=== PATIENT | female | born 1975 | race Caucasian/White ===

== ENCOUNTER 2017-05-12 08:04 | Observation (INO) | payer OTHER ==
[2017-05-12] MEDS ORDERED: ASPIRIN 81 MG TABLET, CHEWABLE PO ONE (08:18)
--- NOTE | 2017-05-12 08:36 | ER Document Report ---
ED General - General Chief Complaint: Chest Pain Stated Complaint: CHEST PAIN Time Seen by Provider: 05/12/17 08:18 Mode of Arrival: Ambulatory Information source: Patient Notes: 41-year-old female no previous cardiac history history of hypertension hyperlipidemia presents with complaints of chest pressure sensation being her right arm as of 7:00 this morning. Patient denies any fevers or chills admits to chronic shortness of breath secondary to smoking. Patient admits to history of CVA. Patient currently smokes. Patient notes she had a chemical stress test performed 3 years ago which was normal has never had a cardiac catheterization TRAVEL OUTSIDE OF THE [place] IN LAST 30 DAYS: No - HPI Onset: Just prior to arrival Onset/Duration: Sudden Quality of pain: Pressure Severity: Mild Pain Level: 1 Associated symptoms: Chest pain Exacerbated by: Denies Relieved by: Denies Similar symptoms previously: Yes Recently seen / treated by doctor: No - Related Data Allergies/Adverse Reactions: latex [Latex] Allergy (Verified 04/29/15 11:36) Sea Food Allergy (Uncoded 04/29/15 11:36) Home Medications: Current Home Medications Lisinopril/Hydrochlorothiazide [Lisinopril-Hctz 20-25 mg Tab] 1 each PO DAILY [History] Pantoprazole Sodium [Protonix] 40 mg PO DAILY 05/12/17 [History] Pravastatin Sodium 80 mg PO DAILY 05/12/17 [History] Sertraline HCl [Zoloft] 100 mg PO DAILY 05/12/17 [History] Past Medical History - Social History Smoking Status: Current Every Day Smoker Cigarette use (# per day): Yes Chew tobacco use (# tins/day): No Smoking Education Provided: Yes - Patient counselled regarding cessation for 4 minutes Family History: CAD - mother with [place] at 52, from it - Past Medical History Cardiac Medical History: Reports: Hx Hypercholesterolemia, Hx Hypertension Denies: Hx Congestive Heart Failure, Hx Heart Attack Pulmonary Medical History: Reports: Hx Bronchitis Denies: Hx Asthma, Hx COPD, Hx Pneumonia, Hx Tuberculosis Neurological Medical History: Reports: Hx Cerebrovascular Accident - 1 YEAR AGO , COMPLETE RECOVERY. Denies: Hx Seizures Endocrine Medical History: Reports: Hx Diabetes Mellitus Type 2 Renal/ Medical History: Denies: Hx End Stage Renal Disease, Hx Kidney Stones, Hx Peritoneal Dialysis GI Medical History: Denies: Hx Cirrhosis, Hx Gastroesophageal Reflux Disease, Hx Ulcer Musculoskeltal Medical History: Denies Hx Arthritis, Denies Hx Multiple Sclerosis Psychiatric Medical History: Reports: Hx Depression Denies: Hx Bipolar Disorder, Hx Schizophrenia Past Surgical History: Reports: Hx Abdominal Surgery - liver biopsy, Hx Dilation and Curettage, Hx Gynecologic Surgery - ECTOPIC PREG., D&C - Immunizations Hx Diphtheria, Pertussis, Tetanus Vaccination: Yes Review of Systems - Review of Systems Notes: REVIEW OF SYSTEMS: CONSTITUTIONAL : Denies fever, chills, or sweats. Denies recent illness. EENT: Denies eye, ear, throat, or mouth pain or symptoms. Denies nasal or sinus congestion or discharge. Denies throat, tongue, or mouth swelling or difficulty swallowing. CARDIOVASCULAR: Admits to chest pain RESPIRATORY: Denies cough, cold, or chest congestion. Denies shortness of breath, difficulty breathing, or wheezing. GASTROINTESTINAL: Denies abdominal pain or distention. Denies nausea, vomiting , or diarrhea. Denies blood in vomitus, stools, or per rectum. Denies black, tarry stools. Denies constipation. GENITOURINARY: Denies difficulty urinating, painful urination, burning, frequency, blood in urine, or discharge. FEMALE GENITOURINARY: Denies vaginal bleeding, heavy or abnormal periods, irregular periods. Denies vaginal discharge or odor. MUSCULOSKELETAL: Denies back or neck pain or stiffness. Denies joint pain or swelling. SKIN: Denies rash, lesions or sores. HEMATOLOGIC : Denies easy bruising or bleeding. LYMPHATIC: Denies swollen, enlarged glands. NEUROLOGICAL: Denies confusion or altered mental status. Denies passing out or loss of consciousness. Denies dizziness or lightheadedness. Denies headache. Denies weakness or paralysis or loss of use of either side. Denies problems with gait or speech. Denies sensory loss, numbness, or tingling. Denies seizures. PSYCHIATRIC: Denies anxiety or stress. Denies depression, suicidal ideation, or homicidal ideation. ALL OTHER SYSTEMS REVIEWED AND NEGATIVE. PHYSICAL EXAMINATION: GENERAL: Well-appearing, well-nourished and in no acute distress. HEAD: Atraumatic, normocephalic. EYES: Pupils equal round and reactive to light, extraocular movements intact, conjunctiva are normal. ENT: Nares patent, oropharynx clear without exudates. Moist mucous membranes. NECK: Normal range of motion, supple without lymphadenopathy LUNGS: Faint wheezing left upper lobe HEART: Regular rate and rhythm without murmurs ABDOMEN: Soft, nontender, nondistended abdomen. No guarding, no rebound. No masses appreciated. Female : deferred Musculoskeletal: Normal range of motion, no pitting or edema. No cyanosis. NEUROLOGICAL: Cranial nerves grossly intact. Normal speech, normal gait. Normal sensory, motor exams PSYCH: Normal mood, normal affect. SKIN: Warm, Dry, normal turgor, no rashes or lesions noted. Dictation was performed using [employer] ([email or web address] voice recognition software Physical Exam - Vital signs Vitals: Temp Pulse Resp BP Pulse Ox 97.8 F 94 18 181/101 H 95 05/12/17 08:10 05/12/17 08:10 05/12/17 08:10 05/12/17 08:10 05/12/17 08:10 Course - Re-evaluation Re-evalutation: 05/12/17 08:36 Cardiac workup pending at this time patient is not reproducible chest pain - Vital Signs Vital signs: Temp Pulse Resp BP Pulse Ox 97.8 F 94 21 H 147/95 H 96 05/12/17 08:10 05/12/17 08:10 05/12/17 09:46 05/12/17 09:46 05/12/17 09:46 - Laboratory Result Diagrams: 05/12/17 08:42 05/12/17 08:42 Laboratory results interpreted by me: 05/12/17 08:42 Glucose 132 H Discharge - Discharge Clinical Impression: Chest pain Qualifiers: Chest pain type: unspecified Qualified Code(s): R07.9 - Chest pain, unspecified HTN (hypertension) Qualifiers: Hypertension type: essential hypertension Qualified Code(s): I10 - Essential ( primary) hypertension Condition: Stable Disposition: ADMITTED OBSERVATION Admitting Provider: Hospitalist Unit Admitted: Telemetry
[2017-05-12 08:54] LABS: ABSOLUTE BASOPHILS # (AUTO) 0.1 10^3/uL (0.0-0.2); ABSOLUTE EOSINOPHILS # (AUTO) 0.1 10^3/uL (0.0-0.6); ABSOLUTE LYMPHOCYTES (AUTO) 1.4 10^3/uL (0.5-4.7); ABSOLUTE MONOCYTES (AUTO) 0.4 10^3/uL (0.1-1.4); ABSOLUTE NEUT (AUTO) 5.6 10^3/uL (1.7-8.2); BASOPHILS % (AUTO) 0.8 % (0-2); EOSINOPHILS % (AUTO) 0.9 % (0-6); HEMATOCRIT 43.3 % (36.0-47.0); HEMOGLOBIN 14.6 g/dL (12.0-15.5); HGB HCT DIFFERENCE 0.5; LYMPHOCYTES % (AUTO) 18.5 % (13-45); MEAN CORPUSCULAR HEMOGLOBIN 32.5 pg (27.0-33.4); MEAN CORPUSCULAR HGB CONC 33.6 g/dL (32.0-36.0); MEAN CORPUSCULAR VOLUME 97 fl (80-97); MONOCYTES % (AUTO) 5.3 % (3-13); RED BLOOD COUNT 4.48 10^6/uL (3.72-5.28); RED CELL DISTRIBUTION WIDTH 13.4 % (11.5-14.0); SEGMENTED NEUTROPHILS % (AUTO) 74.5 % (42-78); WHITE BLOOD COUNT 7.6 10^3/uL (4.0-10.5)
[2017-05-12 09:05] LABS: ALANINE AMINOTRANSFERASE 35 U/L (9-52); ALKALINE PHOSPHATASE 75 U/L (38-126); ANION GAP 9 (5-19); ASPARTATE AMINO TRANSFERASE 19 U/L (14-36); BILIRUBIN,DIRECT 0.3 mg/dL (0.0-0.4); BILIRUBIN,TOTAL 0.4 mg/dL (0.2-1.3); BLOOD UREA NITROGEN 14 mg/dL (7-20); CALCIUM 9.6 mg/dL (8.4-10.2); CARBON DIOXIDE 24 mmol/L (22-30); CHLORIDE 105 mmol/L (98-107); CREATINE KINASE 76 U/L (30-135); CREATININE RESULT 0.73 mg/dL (0.52-1.25); GLUCOSE 132 mg/dL (75-110); POTASSIUM 4.7 mmol/L (3.6-5.0); SODIUM 137.9 mmol/L (137-145); TOTAL PROTEIN 7.1 g/dL (6.3-8.2)
--- NOTE | 2017-05-12 09:12 | RADIOLOGY REPORT (SQ) ---
EXAM DESCRIPTION: CHEST SINGLE VIEW COMPLETED DATE/TIME: 05/12/2017 9:00 am REASON FOR STUDY: chest pain COMPARISON: 06/07/2016 EXAM PARAMETERS: NUMBER OF VIEWS: One view. TECHNIQUE: Single frontal radiographic view of the chest acquired. RADIATION DOSE: NA LIMITATIONS: None. FINDINGS: LUNGS AND PLEURA: No opacities, masses or pneumothorax. No pleural effusion. MEDIASTINUM AND HILAR STRUCTURES: No masses. Contour normal. HEART AND VASCULAR STRUCTURES: Heart normal in size. Normal vasculature. BONES: No acute findings. HARDWARE: None in the chest. OTHER: No other significant finding. IMPRESSION: NO ACUTE RADIOGRAPHIC FINDING IN THE CHEST. TECHNICAL DOCUMENTATION: JOB ID: [id number]
[2017-05-12 09:16] LABS: CREATINE KINASE MB 0.52 ng/mL (<4.55); TROPONIN I 0.017 ng/mL
[2017-05-12] MEDS: NITROGLYCERIN 0.4 MG/TAB 25 TAB/BOTTLE SL PRN ×2 (09:24→09:51)
[2017-05-12] MEDS ORDERED: NITROGLYCERIN 0.4 MG/TAB 25 TAB/BOTTLE SL PRN (10:51)
[2017-05-12] MEDS ORDERED: ONDANSETRON HCL INJ/PF 4 MG/2 ML SDV IV PRN (10:51)
--- NOTE | 2017-05-12 12:42 | PDOC H&P ---
History of Present Illness Admission Date/PCP: 05/12/17 10:51 PAUL COLLINS NP Patient complains of: Midsternal chest pain radiating to right shoulder History of Present Illness: MABEL VILLASENOR is a 41 year old female with no previous cardiac history history of hypertension, tobacco abuse, hyperlipidemia; who presents with complaints of chest pressure sensation that radiated to her right arm as of 7: 00 this morning, when she was getting out of bed. Patient denies any fevers or chills admits to chronic shortness of breath secondary to smoking. Patient admits to history of CVA with no residual or weakness. Patient currently smokes. Patient notes she had a chemical stress test performed 3 years ago which was normal has never had a cardiac catheterization Past Medical History Cardiac Medical History: Reports: Hyperlipidema, Hypertension Denies: Congestive Heart Failure, Myocardial Infarction Pulmonary Medical History: Reports: Bronchitis Denies: Asthma, Chronic Obstructive Pulmonary Disease (COPD), Pneumonia, Tuberculosis Neurological Medical History: Denies: Seizures Endocrine Medical History: Reports: Diabetes Mellitus Type 2 Renal/ Medical History: Denies: End Stage Renal Disease Malignancy Medical History: Reports: None GI Medical History: Denies: Cirrhosis, Gastroesophageal Reflux Disease Musculoskeltal Medical History: Denies: Arthritis Psychiatric Medical History: Reports: Depression, Tobacco Dependency Denies: Bipolar Disorder Traumatic Medical History: Reports: None Hematology: Denies: Anemia, Bleeding Tendencies Infectious Medical History: Reports: None Past Surgical History Past Surgical History: Reports: None Social History Information Source: Patient Lives with: Spouse/Significant other Smoking Status: Current Every Day Smoker Cigarettes Packs Per Day: 1 Number of Years Smokin Last Time Smoked: today Frequency of Alcohol Use: Occasional Drugs: None Hx Prescription Drug Abuse: No - Advance Directive Resuscitation Status: Full Code Family History Family History: CAD - mother with [place] at 52, from it, Hyperlipidemia, Hypertension Parental Family History Reviewed: Yes Children Family History Reviewed: Yes Sibling(s) Family History Reviewed.: Yes Medication/Allergy Home Medications: Lisinopril/Hydrochlorothiazide [Lisinopril-Hctz 20-25 mg Tab] 1 each PO DAILY Pantoprazole Sodium [Protonix] 40 mg PO DAILY 05/12/17 Pravastatin Sodium 80 mg PO DAILY 05/12/17 Sertraline HCl [Zoloft] 100 mg PO DAILY 05/12/17 Allergies/Adverse Reactions: latex [Latex] Allergy (Verified 04/29/15 11:36) Sea Food Allergy (Uncoded 04/29/15 11:36) Review of Systems Constitutional: ABSENT: chills, fever(s), headache(s), weight gain, weight loss Eyes: ABSENT: visual disturbances Ears: ABSENT: hearing changes Cardiovascular: PRESENT: chest pain, dyspnea on exertion, other Respiratory: ABSENT: cough, hemoptysis Gastrointestinal: PRESENT: dysphagia, heartburn. ABSENT: abdominal pain, constipation, diarrhea, hematemesis, hematochezia, nausea, vomiting Genitourinary: ABSENT: dysuria, hematuria Musculoskeletal: ABSENT: joint swelling Integumentary: ABSENT: rash, wounds Neurological: ABSENT: abnormal gait, abnormal speech, confusion, dizziness, focal weakness, syncope Psychiatric: ABSENT: anxiety, depression, homidical ideation, suicidal ideation Endocrine: ABSENT: cold intolerance, heat intolerance, polydipsia, polyuria Hematologic/Lymphatic: ABSENT: easy bleeding, easy bruising Physical Exam Vital Signs: Temp Pulse Resp BP Pulse Ox 97.8 F 90 24 H 148/80 H 98 05/12/17 08:10 05/12/17 11:26 05/12/17 11:26 05/12/17 11:26 05/12/17 11:26 General appearance: PRESENT: no acute distress, well-developed, well-nourished Head exam: PRESENT: atraumatic, normocephalic Eye exam: PRESENT: conjunctiva pink, EOMI, PERRLA. ABSENT: scleral icterus Ear exam: PRESENT: normal external ear exam Mouth exam: PRESENT: moist, tongue midline Neck exam: ABSENT: carotid bruit, JVD, lymphadenopathy, thyromegaly Respiratory exam: PRESENT: clear to auscultation santi. ABSENT: rales, rhonchi, wheezes Cardiovascular exam: PRESENT: RRR. ABSENT: diastolic murmur, rubs, systolic murmur Pulses: PRESENT: normal dorsalis pedis pul Vascular exam: PRESENT: normal capillary refill GI/Abdominal exam: PRESENT: normal bowel sounds, soft. ABSENT: distended, guarding, mass, organolmegaly, rebound, tenderness Rectal exam: PRESENT: deferred Extremities exam: PRESENT: full ROM. ABSENT: calf tenderness, clubbing, pedal edema Musculoskeletal exam: PRESENT: ambulatory, full ROM, normal inspection Neurological exam: PRESENT: alert, awake, oriented to person, oriented to place , oriented to time, oriented to situation, CN II-XII grossly intact. ABSENT: motor sensory deficit Psychiatric exam: PRESENT: appropriate affect, normal mood. ABSENT: homicidal ideation, suicidal ideation Skin exam: PRESENT: dry, intact, warm. ABSENT: cyanosis, rash Results Impressions: Chest X-Ray 05/12/17 08:18 IMPRESSION: NO ACUTE RADIOGRAPHIC FINDING IN THE CHEST. Assessment & Plan - Diagnosis (1) Chest pain Qualifiers: Chest pain type: chest pain on breathing Qualified Code(s): R07.1 - Chest pain on breathing; R07.81 - Pleurodynia (2) Hyperlipidemia Qualifiers: Hyperlipidemia type: familial hypercholesterolemia Qualified Code(s): E78.01 - Familial hypercholesterolemia Is this a current diagnosis for this admission?: Yes Plan: Continue statin (3) Tobacco abuse Is this a current diagnosis for this admission?: Yes Plan: Counseled is contemplating quitting (4) Morbid obesity with BMI of 45.0-49.9, adult Is this a current diagnosis for this admission?: Yes Plan: Counseled (5) HTN (hypertension) Qualifiers: Hypertension type: essential hypertension Qualified Code(s): I10 - Essential (primary) hypertension Is this a current diagnosis for this admission?: Yes Plan: Continue current medications she is normotensive - Time Time Spent: 50 to 70 Minutes Critical Time spent with patient: 25-34 minutes Medications reviewed and adjusted accordingly: Yes Anticipated discharge: Home Within: within 24 hours
[2017-05-12] MEDS ORDERED: NICOTINE 21 MG/24 HR PATCH.TD24 TD ONE (15:30)
[2017-05-12] MEDS ORDERED: NITROGLYCERIN 2% OINTMENT 1 GM PACKET TP ONE (16:15)
[2017-05-12] MEDS ORDERED: LANSOPRAZOLE 30 MG TAB.RAP.DR PO ONE (16:30)
[2017-05-12] MEDS ORDERED: ENOXAPARIN SODIUM INJ 120 MG/0.8 ML DISP.SYRIN SUBCUT ONE (17:00)
[2017-05-12] MEDS: LANSOPRAZOLE 30 MG TAB.RAP.DR PO SCH (17:04)
--- NOTE | 2017-05-12 17:22 | RADIOLOGY REPORT (SQ) ---
EXAM DESCRIPTION: CTA CHEST COMPLETED DATE/TIME: 05/12/2017 5:08 pm REASON FOR STUDY: PE protocol, chest pain, positive troponin COMPARISON: Chest x-ray done earlier the same day. TECHNIQUE: CT scan of the chest performed using helical scanning technique with dynamic intravenous contrast injection. Images reviewed with lung, soft tissue and bone windows. Reconstructed coronal and sagittal MPR images reviewed. Additional 3 dimensional post-processing performed to develop Maximal Intensity Projection images (NE P). All images stored on PACS. All CT scanners at this facility use dose modulation, iterative reconstruction, and/or weight based d osing when appropriate to reduce radiation dose to as low as reasonably achievable (ALARA). [facility]: Dose Right [facility]: CareDose [facility]: Dose Right [facility]: Teradose 4D [facility]: [employer] CONTRAST TYPE AND DOSE: contrast/concentration: Isovue 370.00 mg/ml; Total Contrast Delivered: 82.0 ml; Total Saline Delivered: 80.0 ml RENAL FUNCTION: BUN 14, creatinine 0.73 RADIATION DOSE: Up-to-date CT equipment and radiation dose reduction techniques were employed. CTDIv ol: 39.2 - 46.9 mGy. DLP: 1577 mGy-cm. . LIMITATIONS: None. FINDINGS: LUNGS AND PLEURA: No masses, infiltrates, pneumothorax. No pleural effusions, calcificati ons. AORTA AND GREAT VESSELS: No aneurysm or dissection. HEART: No pericardial effusion. PULMONARY ARTERIES: No emboli visualized in the main pulmonary arteries or the segmental branches. HILAR AND MEDIASTINAL STRUCTURES: No identified masses or abnormal nodes. HARDWARE: None in the chest. UPPER ABDOMEN: No significant findings. Limited exam. THYROID AND OTHER SOFT TISSUES: No masses. No adenopathy. BONES: No acute or significant finding. 3D MIPS: Confirm above findings. OTHER: No other significant finding. IMPRESSION: NORMAL CTA OF THE CHEST. NO PULMONARY EMBOLI. TECHNICAL DOCUMENTATION: JOB ID: [id number] Quality ID # [id number]: Final reports with documentation of one or more dose reduction techniques (e.g., Au tomated exposure control, adjustment of the mA and/or kV according to patient size, use of iterative reconstruction technique) 2010 [employer]- All Rights Reserved
[2017-05-12] MEDS ORDERED: METOPROLOL TARTRATE 25 MG TABLET PO ONE (17:30)
--- NOTE | 2017-05-12 21:06 | PDOC CONSULTATION ---
Consultation Consult Date: 05/12/17 Attending physician:: OG HERNANDEZ Consult reason:: Chest pain History of Present Illness Admission Date/PCP: 05/12/17 10:51 PAUL COLLINS NP Patient complains of: Chest pain History of Present Illness: MABEL VILLASENOR is a 41 year old female with no previous cardiac history history of hypertension, tobacco abuse, hyperlipidemia; who presents with complaints of chest pressure sensation that radiated to her right arm as of 7: 00 this morning, when she was getting out of bed. Patient denies any fevers or chills admits to chronic shortness of breath secondary to smoking. Patient admits to history of CVA with no residual or weakness. Patient currently smokes. Patient notes she had a chemical stress test performed 3 years ago which was normal has never had a cardiac catheterization. This history was reviewed and confirmed. Patient has noted some intermittent pedal edema. Patient also describes shortness of breath being associated with the chest discomfort she has. Patient denied any PND, orthopnea. Patient has noted some weight gain recently. Past Medical History Cardiac Medical History: Reports: Hyperlipidema, Hypertension Denies: Congestive Heart Failure, Myocardial Infarction Pulmonary Medical History: Reports: Bronchitis Denies: Asthma, Chronic Obstructive Pulmonary Disease (COPD), Pneumonia, Tuberculosis Neurological Medical History: Denies: Seizures Endocrine Medical History: Reports: Diabetes Mellitus Type 2 Renal/ Medical History: Denies: End Stage Renal Disease Malignancy Medical History: Reports: None GI Medical History: Denies: Cirrhosis, Gastroesophageal Reflux Disease Musculoskeltal Medical History: Denies: Arthritis Psychiatric Medical History: Reports: Depression, Tobacco Dependency Denies: Bipolar Disorder Traumatic Medical History: Reports: None Hematology: Denies: Anemia, Bleeding Tendencies Infectious Medical History: Reports: None Past Surgical History Past Surgical History: Reports: None Social History Information Source: Patient Lives with: Spouse/Significant other Smoking Status: Current Every Day Smoker Cigarettes Packs Per Day: 1 Number of Years Smokin Last Time Smoked: today Frequency of Alcohol Use: Occasional Drugs: None Hx Prescription Drug Abuse: No - Advance Directive Resuscitation Status: Full Code Family History Family History: CAD - mother with [place] at 52, from it, Hyperlipidemia, Hypertension Parental Family History Reviewed: Yes Children Family History Reviewed: Yes Sibling(s) Family History Reviewed.: Yes Medication/Allergy Home Medications: Pantoprazole Sodium [Protonix] 40 mg PO DAILY 05/12/17 Pravastatin Sodium 80 mg PO DAILY 05/12/17 Sertraline HCl [Zoloft] 100 mg PO DAILY 05/12/17 Acetaminophen [Tylenol 325 mg Tablet] 650 mg PO Q6HP PRN tablet 05/13/17 Atorvastatin Calcium [Lipitor 40 mg Tablet] 80 mg PO QHS tablet 05/13/17 Enoxaparin Sodium [Lovenox Inj 120 mg/0.8 ml Disp.syrin] 105 mg SUBCUT Q12 disp.syrin 05/13/17 Lansoprazole [Prevacid 30 mg Odt Tablet] 30 mg PO BID@0600,1700 tab.rap.dr Lisinopril [Prinivil 10 mg Tablet] 20 mg PO DAILY tablet 05/13/17 Metoprolol Tartrate [Lopressor 25 mg Tablet] 12.5 mg PO Q12 tablet 05/13/17 Nicotine [Nicoderm 21 mg/24 Hr Transderm Patch] 1 each TD DAILY patch.td24 Nitroglycerin [Nitrol 2% Ointment 1Gm Packet] 0.5 gm TP Q6 oint..gm. 05/13/17 Normal Saline [Saline Flush 2.5 ml Monoject Prefil Syrin] 2.5 ml IV Q8 disp.syrin 05/13/17 Ranolazine [Ranexa 500 mg Tab.sr] 500 mg PO Q12 tab.sr.12h 05/13/17 Allergies/Adverse Reactions: latex [Latex] Allergy (Verified 04/29/15 11:36) Sea Food Allergy (Uncoded 04/29/15 11:36) Physical Exam Vital Signs: Temp Pulse Resp BP Pulse Ox 98.0 F 87 18 129/73 H 98 05/12/17 15:44 05/12/17 19:00 05/12/17 15:44 05/12/17 15:44 05/12/17 15:44 Intake & Output 05/11/17 05/12/17 05/13/17 06:59 06:59 06:59 Intake Total 800 Balance 800 Weight 105.6 kg General appearance: PRESENT: no acute distress Head exam: PRESENT: atraumatic, normocephalic Eye exam: PRESENT: conjunctiva pink, EOMI, PERRLA. ABSENT: scleral icterus Ear exam: PRESENT: normal external ear exam Mouth exam: PRESENT: moist, tongue midline Throat exam: ABSENT: post pharyngeal erythema, tonsillar erythema, tonsillar exudate, tonsillogmegaly, other Neck exam: ABSENT: carotid bruit, JVD, lymphadenopathy, thyromegaly Respiratory exam: PRESENT: clear to auscultation santi. ABSENT: rales, rhonchi, wheezes Cardiovascular exam: PRESENT: RRR, +S1 - normal, +S2 - normal. ABSENT: diastolic murmur, rubs, systolic murmur Pulses: PRESENT: normal carotid pulses, normal dorsalis pedis pul, +2 pedal pulses bilateral Vascular exam: PRESENT: normal capillary refill GI/Abdominal exam: PRESENT: normal bowel sounds, soft. ABSENT: distended, guarding, mass, organolmegaly, rebound, tenderness Rectal exam: PRESENT: deferred Extremities exam: PRESENT: full ROM, pedal edema - 1 +. ABSENT: calf tenderness , clubbing Neurological exam: PRESENT: alert, awake, oriented to person, oriented to place , oriented to time, oriented to situation, CN II-XII grossly intact. ABSENT: motor sensory deficit Skin exam: PRESENT: dry, intact, warm. ABSENT: cyanosis, rash Results Laboratory Results: 05/12/17 15:08 Troponin I 0.189 EKG Comments: NSR, WNL Impressions: Chest/Abdomen CTA 05/12/17 00:00 IMPRESSION: NORMAL CTA OF THE CHEST. NO PULMONARY EMBOLI. Chest X-Ray 05/12/17 08:18 IMPRESSION: NO ACUTE RADIOGRAPHIC FINDING IN THE CHEST. Assessment & Plan - Diagnosis (1) Troponin level elevated Is this a current diagnosis for this admission?: Yes (2) Chest pain Qualifiers: Chest pain type: chest pain on breathing Qualified Code(s): R07.1 - Chest pain on breathing; R07.81 - Pleurodynia (3) HTN (hypertension) Qualifiers: Hypertension type: essential hypertension Qualified Code(s): I10 - Essential (primary) hypertension Is this a current diagnosis for this admission?: Yes (4) Hyperlipidemia Qualifiers: Hyperlipidemia type: unspecified Qualified Code(s): E78.5 - Hyperlipidemia , unspecified Is this a current diagnosis for this admission?: Yes (5) Morbid obesity with BMI of 45.0-49.9, adult Is this a current diagnosis for this admission?: Yes (6) Tobacco abuse Is this a current diagnosis for this admission?: Yes - Notes Notes: Troponin level elevated: Most likely related to acute coronary syndrome, however other differential diagnosis includes pulmonary embolism especially in view of no acute EKG changes. Patient will be treated as such. Patient has chest pain and also positive troponin I therefore does qualify for diagnosis of non-STEMI. Patient will be treated with aspirin, Plavix, full dose anticoagulation, beta-roslyn. DIANE inhibitor/angiotensin receptor roslyn will be added after making sure that patient blood pressure is stable. Differential diagnosis included non-probable pulmonary embolism. Patient does have multiple cardiac risk factors risk factors including obesity, smoking and some pedal edema. A CTA was therefore ordered and this came back as negative. Chest pain: Most likely related to acute coronary syndrome. Needed to rule out pulmonary embolism. Will place patient on empiric proton pump inhibitor for possible GI reflux. Hypertension: Blood pressure goal should be 135/85 or less. Morbid obesity: Patient encouraged in weight loss. Tobacco abuse: Patient advised to stop smoking. - Time Time Spent: 30 to 50 Minutes - CODE STATUS was discussed, patient remains full code. Surrogate decision-maker patient spouse. Multiple medical problems were addressed. More than 50% of the time spent coordinating care, discussing management plans with involved caregivers. Management plans discussed with involved personnels. Medical decision making was of moderate to high complexity , patient's has multiple comorbidities.
[2017-05-12] MEDS ORDERED: CLOPIDOGREL BISULFATE 300 MG TABLET PO ONE (21:11)
[2017-05-12] MEDS ORDERED: ACETAMINOPHEN 325 MG TABLET PO PRN (21:35)
[2017-05-12 21:49] LABS: ANION GAP 5 (5-19); BLOOD UREA NITROGEN 15 mg/dL (7-20); CALCIUM 9.2 mg/dL (8.4-10.2); CARBON DIOXIDE 27 mmol/L (22-30); CHLORIDE 102 mmol/L (98-107); CREATINE KINASE 85 U/L (30-135); CREATININE RESULT 0.77 mg/dL (0.52-1.25); GLUCOSE 118 mg/dL (75-110); POTASSIUM 4.4 mmol/L (3.6-5.0); SODIUM 133.9 mmol/L (137-145)
[2017-05-12] MEDS ORDERED: ATORVASTATIN CALCIUM 40 MG TABLET PO SCH (22:00)
[2017-05-12] MEDS ORDERED: ENOXAPARIN SODIUM INJ 100 MG/1 ML DISP.SYRIN SUBCUT SCH (22:00)
[2017-05-12] MEDS ORDERED: LANSOPRAZOLE 30 MG TAB.RAP.DR PO SCH (22:00)
[2017-05-12] MEDS ORDERED: RANOLAZINE 500 MG TAB.SR.12H PO SCH (22:00)
[2017-05-12] MEDS ORDERED: ATORVASTATIN CALCIUM 20 MG TABLET PO SCH (22:00)
--- NOTE | 2017-05-12 23:06 | PDOC TRANSFER SUMMARY ---
General Admission Date/PCP: 05/12/17 10:51 PAUL COLLINS NP Accepting Facility: [facility] Resuscitation Status: Full Code - Transfer Diagnosis (1) Non-ST elevation LA (NSTEMI) Is this a current diagnosis for this admission?: Yes Diagnosis Summary: Patient admitted with retrosternal chest pain complicated by uncontrolled hypertension, dyslipidemia, tobacco and family history of mother dying of massive heart attack at age of 51. She denies persistent chest pain and her EKG is unchanged, however troponin I is consistently elevated from undetectable on admission to 0.67 on last draw to spite oxygen, aspirin, Coreg, Lipitor, Plavix, Lovenox. Cardiology consulted recommending transfer for consideration of cardiac catheterization. The patient is stable for transport, Dr. Bunch at [facility] accepts the patient in transfer. (2) HTN (hypertension) Is this a current diagnosis for this admission?: Yes Diagnosis Summary: Improved with Coreg, lisinopril, as needed nitroglycerin (3) Hyperlipidemia Is this a current diagnosis for this admission?: Yes Diagnosis Summary: Lipitor 80 mg nightly (4) Morbid obesity with BMI of 45.0-49.9, adult Is this a current diagnosis for this admission?: Yes (5) Tobacco abuse Is this a current diagnosis for this admission?: Yes - Transfer Medications Home Medications: Lisinopril/Hydrochlorothiazide [Lisinopril-Hctz 20-25 mg Tab] 1 each PO DAILY Pantoprazole Sodium [Protonix] 40 mg PO DAILY 05/12/17 Pravastatin Sodium 80 mg PO DAILY 05/12/17 Sertraline HCl [Zoloft] 100 mg PO DAILY 05/12/17 Transfer Medications: Current Medications Acetaminophen (Tylenol 325 Mg Tablet) 650 mg PO Q6HP PRN PRN Reason: PAIN Stop: 06/11/17 21:34 Last Admin: 05/12/17 21:55 Dose: 650 mg Atorvastatin Calcium (Lipitor 40 Mg Tablet) 80 mg PO QHS JEVON Stop: 06/11/17 21:59 Last Admin: 05/12/17 21:25 Dose: 80 mg Enoxaparin Sodium (Lovenox Inj 120 Mg/0.8 Ml Disp.Syrin) 105 mg SUBCUT Q12 JEVON Stop: 06/12/17 09:59 Lansoprazole (Prevacid 30 Mg Odt Tablet) 30 mg PO BID@0600,1700 [facility] Stop: 06/11/17 16:59 Last Admin: 05/12/17 17:04 Dose: 30 mg Lisinopril (Prinivil 10 Mg Tablet) 20 mg PO DAILY [facility] Stop: 06/12/17 09:59 Metoprolol Tartrate (Lopressor 25 Mg Tablet) 12.5 mg PO Q12 JEVON Stop: 06/12/17 09:59 Nicotine (Nicoderm 21 Mg/24 Hr Transderm Patch) 1 each TD DAILY JEVON Stop: 06/12/17 09:59 Nitroglycerin (Nitrostat 0.4 Mg (1/150 Gr) Tabs 25/Bottle) 1 tab SL Q5MP PRN PRN Reason: chest pain Nitroglycerin (Nitrol 2% Ointment 1gm Packet) 0.5 gm TP Q6 JEVON Stop: 06/12/17 00:00 Ondansetron HCl (Zofran Inj/Pf 4 Mg/2 Ml Sdv) 4 mg IV Q6HP PRN PRN Reason: nausea Stop: 06/11/17 10:50 Ranolazine (Ranexa 500 Mg Tab.Sr) 500 mg PO Q12 JEVON Stop: 06/11/17 21:59 Last Admin: 05/12/17 21:21 Dose: 500 mg Sertraline HCl (Zoloft 50 Mg Tablet) 100 mg PO DAILY [facility] Stop: 06/12/17 09:59 Sodium Chloride (Saline Flush 2.5 Ml Monoject Prefil Syrin) 2.5 ml IV Q8 JEVON Stop: 06/11/17 13:59 Last Admin: 05/12/17 21:21 Dose: 2.5 ml - Allergies Allergies/Adverse Reactions: latex [Latex] Allergy (Verified 04/29/15 11:36) Sea Food Allergy (Uncoded 04/29/15 11:36) Hospital Course Hospital Course: Patient admitted with retrosternal chest pain complicated by history of uncontrolled hypertension, dyslipidemia, tobacco and family history of mother dying of massive heart attack at age of 51. She denies persistent chest pain and her EKG is unchanged, however troponin I is consistently elevated from undetectable on admission to 0.67 on last draw to spite oxygen, aspirin, Coreg, Lipitor, Plavix, Lovenox. Cardiology consulted recommending transfer for consideration of cardiac catheterization. The patient is stable for transport, Dr. Bunch at [facility] accepts the patient in transfer. Physical Exam Vital Signs: Temp Pulse Resp BP Pulse Ox 98.4 F 73 20 119/75 98 05/12/17 20:25 05/12/17 20:25 05/12/17 20:25 05/12/17 20:25 05/12/17 20:25 Intake & Output 05/11/17 05/12/17 05/13/17 11:59 11:59 11:59 Intake Total 800 Balance 800 Weight 105.6 kg General appearance: PRESENT: no acute distress, well-developed, well-nourished Head exam: PRESENT: atraumatic, normocephalic Eye exam: PRESENT: conjunctiva pink, EOMI, PERRLA. ABSENT: scleral icterus Ear exam: PRESENT: normal external ear exam Mouth exam: PRESENT: moist, tongue midline Neck exam: ABSENT: carotid bruit, JVD, lymphadenopathy, thyromegaly Respiratory exam: PRESENT: clear to auscultation santi. ABSENT: rales, rhonchi, wheezes Cardiovascular exam: PRESENT: RRR. ABSENT: diastolic murmur, rubs, systolic murmur Pulses: PRESENT: normal dorsalis pedis pul Vascular exam: PRESENT: normal capillary refill GI/Abdominal exam: PRESENT: normal bowel sounds, soft. ABSENT: distended, guarding, mass, organolmegaly, rebound, tenderness Rectal exam: PRESENT: deferred Extremities exam: PRESENT: full ROM. ABSENT: calf tenderness, clubbing, pedal edema Neurological exam: PRESENT: alert, awake, oriented to person, oriented to place , oriented to time, oriented to situation, CN II-XII grossly intact. ABSENT: motor sensory deficit Psychiatric exam: PRESENT: appropriate affect, normal mood. ABSENT: homicidal ideation, suicidal ideation Skin exam: PRESENT: dry, intact, warm. ABSENT: cyanosis, rash Results Laboratory Results: 05/12/17 20:40 05/12/17 20:40 Sodium 133.9 L Potassium 4.4 Chloride 102 Carbon Dioxide 27 Anion Gap 5 BUN 15 Creatinine 0.77 Est GFR ( Amer) > 60 Est GFR (Non-Af Amer) > 60 Glucose 118 H Calcium 9.2 05/12/17 05/12/17 05/12/17 15:08 20:40 20:40 Creatine Kinase Troponin I 0.189 0.675 Cancelled NT-Pro-B Natriuret Pep 224 H 05/12/17 20:40 Creatine Kinase 85 Troponin I NT-Pro-B Natriuret Pep Impressions: Chest/Abdomen CTA 05/12/17 00:00 IMPRESSION: NORMAL CTA OF THE CHEST. NO PULMONARY EMBOLI. Chest X-Ray 05/12/17 08:18 IMPRESSION: NO ACUTE RADIOGRAPHIC FINDING IN THE CHEST. Plan Discharge Plan: Transfer to tertiary care pending for cardiac catheterization unavailable at our facility. Time Spent: Greater than 30 Minutes
[2017-05-12] MEDS: NITROGLYCERIN 2% OINTMENT 1 GM PACKET TP SCH (23:40)
[2017-05-13 03:21] LABS: ABSOLUTE BASOPHILS # (AUTO) 0.1 10^3/uL (0.0-0.2); ABSOLUTE EOSINOPHILS # (AUTO) 0.1 10^3/uL (0.0-0.6); ABSOLUTE LYMPHOCYTES (AUTO) 2.2 10^3/uL (0.5-4.7); ABSOLUTE MONOCYTES (AUTO) 0.4 10^3/uL (0.1-1.4); ABSOLUTE NEUT (AUTO) 4.2 10^3/uL (1.7-8.2); EOSINOPHILS % (AUTO) 1.4 % (0-6); HEMATOCRIT 38.8 % (36.0-47.0); HEMOGLOBIN 13.2 g/dL (12.0-15.5); HGB HCT DIFFERENCE 0.8; LYMPHOCYTES % (AUTO) 31.3 % (13-45); MEAN CORPUSCULAR HEMOGLOBIN 32.8 pg (27.0-33.4); MEAN CORPUSCULAR HGB CONC 33.9 g/dL (32.0-36.0); MEAN CORPUSCULAR VOLUME 97 fl (80-97); MONOCYTES % (AUTO) 5.6 % (3-13); RED BLOOD COUNT 4.01 10^6/uL (3.72-5.28); RED CELL DISTRIBUTION WIDTH 13.4 % (11.5-14.0); SEGMENTED NEUTROPHILS % (AUTO) 60.7 % (42-78); WHITE BLOOD COUNT 6.9 10^3/uL (4.0-10.5)
[2017-05-13 03:42] LABS: CREATINE KINASE MB 1.73 ng/mL (<4.55); TROPONIN I 0.357 ng/mL
[2017-05-13] MEDS: NITROGLYCERIN 2% OINTMENT 1 GM PACKET TP SCH (05:33)
[2017-05-13] MEDS: LANSOPRAZOLE 30 MG TAB.RAP.DR PO SCH (05:35)
--- NOTE | 2017-05-13 07:27 | EKG REPORT ---
SEVERITY:- NORMAL ECG - SINUS RHYTHM : Confirmed by: Rafa Avila MD 13-May-2017 07:26:07
--- NOTE | 2017-05-13 07:27 | EKG REPORT ---
SEVERITY:- NORMAL ECG - SINUS RHYTHM : Confirmed by: Rafa Avila MD 13-May-2017 07:26:17
--- NOTE | 2017-05-13 07:27 | EKG REPORT ---
SEVERITY:- NORMAL ECG - SINUS RHYTHM : Confirmed by: Rafa Avila MD 13-May-2017 07:26:34
--- NOTE | 2017-05-13 07:27 | EKG REPORT ---
SEVERITY:- NORMAL ECG - SINUS RHYTHM : Confirmed by: Rafa Avila MD 13-May-2017 07:26:51
[2017-05-13 08:39] VITALS: BP 132/88
--- NOTE | 2017-05-13 09:03 | PDOC PROGRESS REPORT ---
Subjective Progress Note for:: 05/13/17 Subjective:: Patient seen on rounds. She is resting on the side of the bed eating breakfast. She denies any chest pain or dyspnea overnight. We discussed her lab results, elevated troponin, and she is in agreement of our recommendation to be transferred to [facility] for further cardiac workup. We also discussed her need to stop smoking. She is contemplating this. She denies any other complaints. Remaining review of systems is negative. Physical Exam Vital Signs: Temp Pulse Resp BP Pulse Ox 98.2 F 76 16 132/88 H 97 05/13/17 08:14 05/13/17 08:14 05/13/17 08:14 05/13/17 08:14 05/13/17 08:14 Intake & Output 05/12/17 05/13/17 05/14/17 06:59 06:59 06:59 Intake Total 1300 Balance 1300 Weight 106.6 kg General appearance: PRESENT: no acute distress, morbidly obese, well-developed, well-nourished Head exam: PRESENT: atraumatic, normocephalic Eye exam: PRESENT: conjunctiva pink, EOMI, PERRLA. ABSENT: scleral icterus Ear exam: PRESENT: normal external ear exam Mouth exam: PRESENT: moist, tongue midline Neck exam: ABSENT: carotid bruit, JVD, lymphadenopathy, thyromegaly Respiratory exam: PRESENT: clear to auscultation santi. ABSENT: rales, rhonchi, wheezes Cardiovascular exam: PRESENT: RRR. ABSENT: diastolic murmur, rubs, systolic murmur Pulses: PRESENT: normal dorsalis pedis pul Vascular exam: PRESENT: normal capillary refill GI/Abdominal exam: PRESENT: normal bowel sounds, soft. ABSENT: distended, guarding, mass, organolmegaly, rebound, tenderness Rectal exam: PRESENT: deferred Extremities exam: PRESENT: full ROM. ABSENT: calf tenderness, clubbing, pedal edema Neurological exam: PRESENT: alert, awake, oriented to person, oriented to place , oriented to time, oriented to situation, CN II-XII grossly intact. ABSENT: motor sensory deficit Psychiatric exam: PRESENT: appropriate affect, normal mood. ABSENT: homicidal ideation, suicidal ideation Skin exam: PRESENT: dry, intact, warm. ABSENT: cyanosis, rash Results Laboratory Results: 05/13/17 03:05 05/12/17 20:40 05/12/17 05/13/17 20:40 03:05 WBC 6.9 RBC 4.01 Hgb 13.2 Hct 38.8 MCV 97 MCH 32.8 MCHC 33.9 RDW 13.4 Plt Count 250 Seg Neutrophils % 60.7 Lymphocytes % 31.3 Monocytes % 5.6 Eosinophils % 1.4 Basophils % 1.0 Absolute Neutrophils 4.2 Absolute Lymphocytes 2.2 Absolute Monocytes 0.4 Absolute Eosinophils 0.1 Absolute Basophils 0.1 Sodium 133.9 L Potassium 4.4 Chloride 102 Carbon Dioxide 27 Anion Gap 5 BUN 15 Creatinine 0.77 Est GFR ( Amer) > 60 Est GFR (Non-Af Amer) > 60 Glucose 118 H Calcium 9.2 05/12/17 05/12/17 05/12/17 15:08 20:40 20:40 Creatine Kinase CK-MB (CK-2) Troponin I 0.189 0.675 Cancelled NT-Pro-B Natriuret Pep 224 H 05/12/17 05/13/17 20:40 03:05 Creatine Kinase 85 CK-MB (CK-2) 1.73 Troponin I 0.357 NT-Pro-B Natriuret Pep Impressions: Chest/Abdomen CTA 05/12/17 00:00 IMPRESSION: NORMAL CTA OF THE CHEST. NO PULMONARY EMBOLI. Chest X-Ray 05/12/17 08:18 IMPRESSION: NO ACUTE RADIOGRAPHIC FINDING IN THE CHEST. Assessment & Plan - Diagnosis (1) Non-ST elevation NE (NSTEMI) Is this a current diagnosis for this admission?: Yes Plan: Serial troponins peaked at .67. [facility] was called by Dr Bonilla who accept patient in transfer. She was loaded with Plavix , started on beta roslyn , aspirin and nitroglycerine. She is stable to transfer today (2) Chest pain Qualifiers: Chest pain type: chest pain on breathing Qualified Code(s): R07.1 - Chest pain on breathing; R07.81 - Pleurodynia Is this a current diagnosis for this admission?: Yes Plan: As #1 (3) Hyperlipidemia Qualifiers: Hyperlipidemia type: familial hypercholesterolemia Qualified Code(s): E78.01 - Familial hypercholesterolemia Is this a current diagnosis for this admission?: Yes Plan: Continue statin (4) HTN (hypertension) Qualifiers: Hypertension type: essential hypertension Qualified Code(s): I10 - Essential (primary) hypertension Is this a current diagnosis for this admission?: Yes Plan: Continue current medications she is normotensive (5) Tobacco abuse Is this a current diagnosis for this admission?: Yes Plan: Counseled is contemplating quitting (6) Morbid obesity with BMI of 45.0-49.9, adult Is this a current diagnosis for this admission?: Yes Plan: Counseled - Time Time Spent with patient: 25-34 minutes Critical Time spent with patient: 15-24 minutes Smoking Cessation Education: 3 to 10 minutes Medications reviewed and adjusted accordingly: Yes Anticipated discharge: [facility]: when bed available
[2017-05-13] MEDS ORDERED: NICOTINE 21 MG/24 HR PATCH.TD24 TD SCH (10:00)
[2017-05-13] MEDS ORDERED: HYDROCHLOROTHIAZIDE 25 MG TABLET PO SCH (10:00)
[2017-05-13] MEDS ORDERED: (PENDING PHARMACY ID) (Lisinopril/Hydrochlorothiazide [Lisinopril-Hctz 20-25 Mg Tab] 1 EAC PO SCH (10:00)
[2017-05-13] MEDS ORDERED: ENOXAPARIN SODIUM INJ 120 MG/0.8 ML DISP.SYRIN SUBCUT SCH (10:00)
[2017-05-13] MEDS ORDERED: ASPIRIN 325 MG TABLET, ENT COATED PO SCH (10:00)
[2017-05-13] MEDS ORDERED: LISINOPRIL 10 MG TABLET PO SCH (10:00)
[2017-05-13] MEDS ORDERED: METOPROLOL TARTRATE 25 MG TABLET PO SCH (10:00)
[2017-05-13] MEDS ORDERED: SERTRALINE HCL 50 MG TABLET PO SCH (10:00)
--- NOTE | 2017-05-15 20:14 | PDOC PROGRESS REPORT ---
Subjective Progress Note for:: 05/13/17 Subjective:: Patient denied any chest pain but had significant elevation of troponin I. Dr. Bonilla discuss this troponin I elevation with me and recommendations were for transfer to tertiary care and cancellation of stress test that was scheduled. Dr. Bonilla did arrange for transfer. Physical Exam Vital Signs: Temp Pulse Resp BP Pulse Ox 98.2 F 76 16 132/88 H 97 05/13/17 08:14 05/13/17 08:14 05/13/17 08:14 05/13/17 08:14 05/13/17 08:14 Intake & Output 05/12/17 05/13/17 05/14/17 06:59 06:59 06:59 Intake Total 1300 Balance 1300 Weight 106.6 kg Exam: GENERAL: well-nourished and in no acute distress. Alert and oriented x3 HEAD: Atraumatic, normocephalic. EYES: Pupils equal round and reactive to light, extraocular movements intact, sclera anicteric, conjunctiva are normal. ENT: TMs normal, nares patent, oropharynx clear without exudates. Moist mucous membranes. No oral ulcerations or bleeding gums noted NECK: supple without lymphadenopathy. Trachea is central. No cervical or axillary lymphadenopathy noted. Carotids are 2+, JVD WNL LUNGS: Respiration seems nonlabored, no significant accessory muscle action noted. Breath sounds clear to auscultation bilaterally and equal noted. No wheezes rales or rhonchi noted. No significant dullness noted on percussion. CHEST: Palpation of the chest wall shows no significant chest wall tenderness. No other significant abnormalities noted. 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 ABDOMEN: Soft, no significant tenderness appreciated, normoactive bowel sounds. No guarding, no rebound. No rigidity noted . No masses appreciated. EXTREMITIES: Pedal pulses are 1-2+, no calf tenderness noted. No clubbing or cyanosis.trace to 1+ pedal edema noted NEUROLOGICAL: Focused neurological exam showed no significant neurologic deficit. Normal speech, no focal weakness appreciated. PSYCH: Normal mood, normal affect. Judgment and insight within normal limits. SKIN: No significant ecchymosis, rash, ulcerations or signs of pruritus noted. MUSCULOSKELETAL EXAM: No significant joint swelling noted. Results Laboratory Results: 05/13/17 03:05 05/12/17 20:40 05/12/17 05/13/17 20:40 03:05 WBC 6.9 RBC 4.01 Hgb 13.2 Hct 38.8 MCV 97 MCH 32.8 MCHC 33.9 RDW 13.4 Plt Count 250 Seg Neutrophils % 60.7 Lymphocytes % 31.3 Monocytes % 5.6 Eosinophils % 1.4 Basophils % 1.0 Absolute Neutrophils 4.2 Absolute Lymphocytes 2.2 Absolute Monocytes 0.4 Absolute Eosinophils 0.1 Absolute Basophils 0.1 Sodium 133.9 L Potassium 4.4 Chloride 102 Carbon Dioxide 27 Anion Gap 5 BUN 15 Creatinine 0.77 Est GFR ( Amer) > 60 Est GFR (Non-Af Amer) > 60 Glucose 118 H Calcium 9.2 05/12/17 05/12/17 05/12/17 15:08 20:40 20:40 Creatine Kinase CK-MB (CK-2) Troponin I 0.189 0.675 Cancelled NT-Pro-B Natriuret Pep 224 H 05/12/17 05/13/17 05/13/17 20:40 03:05 09:27 Creatine Kinase 85 CK-MB (CK-2) 1.73 Troponin I 0.357 0.162 NT-Pro-B Natriuret Pep EKG Comments: Sinus rhythm, no acute ST-T wave changes noted Impressions: Chest/Abdomen CTA 05/12/17 00:00 IMPRESSION: NORMAL CTA OF THE CHEST. NO PULMONARY EMBOLI. Chest X-Ray 05/12/17 08:18 IMPRESSION: NO ACUTE RADIOGRAPHIC FINDING IN THE CHEST. Assessment & Plan - Diagnosis (2) Chest pain Qualifiers: Chest pain type: chest pain on breathing Qualified Code(s): R07.1 - Chest pain on breathing; R07.81 - Pleurodynia Is this a current diagnosis for this admission?: Yes (3) HTN (hypertension) Qualifiers: Hypertension type: essential hypertension Qualified Code(s): I10 - Essential (primary) hypertension Is this a current diagnosis for this admission?: Yes (4) Hyperlipidemia Qualifiers: Hyperlipidemia type: unspecified Qualified Code(s): E78.5 - Hyperlipidemia , unspecified Is this a current diagnosis for this admission?: Yes (5) Morbid obesity with BMI of 45.0-49.9, adult Is this a current diagnosis for this admission?: Yes (6) Tobacco abuse Is this a current diagnosis for this admission?: Yes - Notes Notes: Troponin level elevated: Most likely related to acute coronary syndrome, Patient has chest pain and also positive troponin I therefore does qualify for diagnosis of non-STEMI. Patient will be treated with aspirin, Plavix, full dose anticoagulation, beta-roslyn. DIANE inhibitor/angiotensin receptor roslyn will be added after making sure that patient blood pressure is stable. Differential diagnosis included probable pulmonary embolism. Patient does have multiple embolism risk factors risk factors including obesity, smoking and some pedal edema. A CTA was therefore ordered and this came back as negative. Since patient's troponin I has bumped further, it was felt that patient would be best served by heart catheterization. This was related to the hospitalist electrophonic engineer. In this regard, the hospitalist arranged for patient to be transferred for heart catheterization. Chest pain: Most likely related to acute coronary syndrome. Will place patient on empiric proton pump inhibitor for possible GI reflux. Hypertension: Blood pressure goal should be 135/85 or less. Morbid obesity: Patient encouraged in weight loss. Tobacco abuse: Patient advised to stop smoking. - Time Time with patient: Greater than 35 minutes - More than 50% of the time spent coordinating care, discussing management plans with involved caregivers. Management plans discussed with involved personnels. Medical decision making was of moderate to high complexity, patient's has multiple comorbidities. Medications reviewed and adjusted accordingly: Yes
== END 2017-05-13 09:45 | disposition short-term general hospital (02) ==
LOC: ER 08:04 → 3S 10:51 → UNDOADMOB 10:56 → EH 10:56 → 3S 11:58
PROVIDERS: ADMIT Family Medicine; ATTEND Family Medicine
PROC: HZ31ZZZ Individual Counseling for Substance Abuse Treatment, Behavioral (ICD-10-PCS; principal; 2017-05-13)
DX: I21.4 Non-ST elevation (NSTEMI) myocardial infarction (principal); R07.1 Chest pain on breathing; R07.81 Pleurodynia; E78.01 Familial hypercholesterolemia; I10 Essential (primary) hypertension; E66.01 Morbid (severe) obesity due to excess calories; E11.9 Type 2 diabetes mellitus without complications; F17.210 Nicotine dependence, cigarettes, uncomplicated; R13.10 Dysphagia, unspecified; R12 Heartburn; Z68.42 Body mass index [BMI] 45.0-49.9, adult; Z79.899 Other long term (current) drug therapy; Z82.49 Family history of ischemic heart disease and other diseases of the circulatory system; Z86.73 Personal history of transient ischemic attack (TIA), and cerebral infarction without residual deficits
CPT/HCPCS: 93005 ×3; 99406; 99285; 36415 ×2; 82553 ×2; 82550; 85025 ×2; 80048; 80053; 84484 ×2; 83880; 71010; 71275; 93010 ×2; G0378 ×3; J3490 ×3; J1650

== ENCOUNTER 2017-07-05 06:55 | Emergency (ER) | payer SELFPAY ==
--- NOTE | 2017-07-05 07:24 | ER Document Report ---
ED GI/ - General Mode of Arrival: Ambulatory Information source: Patient TRAVEL OUTSIDE OF THE [place] IN LAST 30 DAYS: No <LANDON BARONE - Last Filed: 07/05/17 08:07> <YUNIER HOLGUIN - Last Filed: 07/05/17 10:44> - General Chief Complaint: Diarrhea Stated Complaint: DIARRHEA,VOMITING Time Seen by Provider: 07/05/17 07:13 Notes: Patient is a 41 year old female that presents to the emergency department today with complaints of black colored diarrhea since yesterday morning. Patient states that she did take Pepto-Bismol however the black stools started before taking it. Patient states she had a cardiac catheterization in April which was clean. Patient states she has had associated upper abdominal pain. (LANDON BARONE) - Related Data Allergies/Adverse Reactions: latex [Latex] Allergy (Verified 04/29/15 11:36) Sea Food Allergy (Uncoded 04/29/15 11:36) Past Medical History - General Information source: Patient - Social History Smoking Status: Never Smoker Cigarette use (# per day): No Frequency of alcohol use: None Drug Abuse: None Lives with: Family Family History: Reviewed & Not Pertinent, CAD - mother with IA at 52, from it, Hyperlipidemia, Hypertension Patient has suicidal ideation: No Patient has homicidal ideation: No - Past Medical History Cardiac Medical History: Reports: Hx Hypercholesterolemia, Hx Hypertension Pulmonary Medical History: Reports: Hx Bronchitis Neurological Medical History: Reports: Hx Cerebrovascular Accident - 1 YEAR AGO , COMPLETE RECOVERY Endocrine Medical History: Reports: Hx Diabetes Mellitus Type 2 Psychiatric Medical History: Reports: Hx Depression Past Surgical History: Reports: Hx Abdominal Surgery - liver biopsy, Hx Dilation and Curettage, Hx Gynecologic Surgery - ECTOPIC PREG., D&C - Immunizations Hx Diphtheria, Pertussis, Tetanus Vaccination: Yes <LANDON BARONE - Last Filed: 07/05/17 08:07> Review of Systems - Review of Systems Constitutional: No symptoms reported EENT: No symptoms reported Cardiovascular: No symptoms reported Respiratory: No symptoms reported Gastrointestinal: See HPI, Abdominal pain, Diarrhea, Black stools Genitourinary: No symptoms reported Female Genitourinary: No symptoms reported Musculoskeletal: No symptoms reported Skin: No symptoms reported Hematologic/Lymphatic: No symptoms reported Neurological/Psychological: No symptoms reported -: Yes All other systems reviewed and negative <LANDON BARONE - Last Filed: 07/05/17 08:07> Physical Exam <LANDON BARONE - Last Filed: 07/05/17 08:07> <YUNIER HOLGUIN - Last Filed: 07/05/17 10:44> - Vital signs Vitals: Temp Pulse Resp BP Pulse Ox 98.9 F 114 H 16 131/93 H 97 07/05/17 07:05 07/05/17 07:05 07/05/17 07:05 07/05/17 07:05 07/05/17 07:05 - Notes Notes: Physical Exam: General: Alert, appears well. HEENT: Normocephalic. Atraumatic. PERRL. Extraocular movements intact. Oropharynx clear. Neck: Supple. Non-tender. Respiratory: No respiratory distress. Wheezing bilaterally. Cardiovascular: Regular rate and rhythm. Abdominal: Obese. RLQ and Epigastric tenderness with palpation. Non-tender. No distension. Normal Bowel Sounds. Back: Non-tender. No deformity or step off. Extremities: Moves all four extremities. Upper extremities: Normal inspection. Normal ROM. Lower extremities: Normal inspection. No edema. Normal ROM. Neurological: Normal cognition. AAOx4. Normal speech. Psychological: Normal affect. Normal Mood. Skin: Warm. Dry. Normal color. (LANDON BARONE) Course <LANDON BARONE - Last Filed: 07/05/17 08:07> - Laboratory Result Diagrams: 07/05/17 08:35 07/05/17 08:35 <YUNIER HOLGUIN - Last Filed: 07/05/17 10:44> - Re-evaluation Re-evalutation: 07/05/17 10:39 The patient's stool was negative for C. difficile toxins and negative for WBCs. It was heme positive. The patient's hemoglobin is 15.6 and this is higher than it has ever been when checked here over the last few years. BUN and creatinine are actually lower than they have been in the past. This was suggest that there is not a significant amount of bleeding associated with this visit. The patient has taken Pepto-Bismol which could contribute to the black color of her diarrhea. She is encouraged to go on clear liquid diet for now, she may try some Imodium right ear or continue Pepto-Bismol. She is advised to return immediately if there is gross bloody diarrhea, she becomes lightheaded when standing up or any other problems. She should otherwise follow with her primary care provider and possibly have a colonoscopy at some point. (YUNIER HOLGUIN) - Vital Signs Vital signs: Temp Pulse Resp BP Pulse Ox 98.9 F 114 H 16 131/93 H 97 07/05/17 07:05 07/05/17 07:05 07/05/17 07:05 07/05/17 07:05 07/05/17 07:05 - Laboratory Laboratory results interpreted by me: 07/05/17 07/05/17 07/05/17 08:35 08:35 08:40 Hgb 15.6 H Potassium 3.3 L Glucose 142 H Urine Protein 30 H Urine Blood SMALL H Urine Urobilinogen 4.0 H Discharge <LANDON BARONE - Last Filed: 07/05/17 08:07> <YUNIER HOLGUIN - Last Filed: 07/05/17 10:44> - Discharge Clinical Impression: Heme positive stool, Nausea, vomiting and diarrhea Abdominal pain Qualifiers: Abdominal location: epigastric Qualified Code(s): R10.13 - Epigastric pain Condition: Stable Disposition: HOME, SELF-CARE Additional Instructions: Gastroenteritis: You most likely have gastroenteritis. This is an irritation of the stomach and intestinal tract. It's usually caused by a virus, but can also be caused by bacteria, toxins that cause food poisoning, or excessive alcohol intake. Symptoms may include fever, painful abdominal cramps, nausea, vomiting , and diarrhea. Start with small amounts (two to six ounces) of clear liquids (soft drinks , herb teas, broth, etc). Try to take fluids frequently even if you are vomiting, to prevent dehydration. When liquids are being consumed successfully , advance to small amounts of bland food (mashed potato, toast) for 6 - 12 hours. Gastroenteritis rarely requires medication. It goes away by itself. Use good handwashing so you don't spread germs. Wash underwear in very hot water. Drink cool clear liquids today. Take Imodium-AD or continue Pepto-Bismol for the diarrhea. Take anti-acids for the epigastric discomfort. Return immediately for bloody diarrhea, dizziness or lightheaded sensation when standing, or any other concerns. Follow-up with your doctor if not improving over the next 1-2 days. RETURN TO THE EMERGENCY ROOM IF ANY NEW OR WORSENING SYMPTOMS. Referrals: [facility] [Primary Care Provider] - Follow up as needed Scribe Attestation: 07/05/17 10:44 I personally performed the services described in the documentation, reviewed and edited the documentation which was dictated to the scribe in my presence, and it accurately records my words and actions. (YUNIER HOLGUIN) Scribe Documentation - Scribe Written by Dericke:: Antwan Mejia, 07/05/2017 [id number] acting as scribe for :: Ophelia <LANDON BARONE - Last Filed: 07/05/17 08:07>
[2017-07-05] MEDS ORDERED: LIDOCAINE 2% VISCOUS SOLN 20 ML UDCUP PO ONE (07:25)
[2017-07-05] MEDS ORDERED: MAG HYDROX/AL HYDROX/SIMETH SUSP 30 ML UDCUP PO ONE (07:25)
[2017-07-05 08:50] LABS: ABSOLUTE LYMPHOCYTES (AUTO) 1.1 10^3/uL (0.5-4.7); ABSOLUTE MONOCYTES (AUTO) 0.3 10^3/uL (0.1-1.4); BASOPHILS % (AUTO) 0.4 % (0-2); EOSINOPHILS % (AUTO) 0.1 % (0-6); HEMATOCRIT 43.9 % (36.0-47.0); HEMOGLOBIN 15.6 g/dL (12.0-15.5); HGB HCT DIFFERENCE 2.9; LYMPHOCYTES % (AUTO) 16.7 % (13-45); MEAN CORPUSCULAR HEMOGLOBIN 33.1 pg (27.0-33.4); MEAN CORPUSCULAR HGB CONC 35.5 g/dL (32.0-36.0); MEAN CORPUSCULAR VOLUME 93 fl (80-97); MONOCYTES % (AUTO) 5.3 % (3-13); RED BLOOD COUNT 4.71 10^6/uL (3.72-5.28); RED CELL DISTRIBUTION WIDTH 13.4 % (11.5-14.0); SEGMENTED NEUTROPHILS % (AUTO) 77.5 % (42-78); WHITE BLOOD COUNT 6.4 10^3/uL (4.0-10.5)
[2017-07-05 09:01] LABS: ALANINE AMINOTRANSFERASE 38 U/L (9-52); ALBUMIN 4.1 g/dL (3.5-5.0); ALKALINE PHOSPHATASE 86 U/L (38-126); ANION GAP 12 (5-19); ASPARTATE AMINO TRANSFERASE 24 U/L (14-36); BILIRUBIN,DIRECT 0.4 mg/dL (0.0-0.4); BILIRUBIN,TOTAL 0.7 mg/dL (0.2-1.3); BLOOD UREA NITROGEN 10 mg/dL (7-20); CALCIUM 9.1 mg/dL (8.4-10.2); CARBON DIOXIDE 27 mmol/L (22-30); CHLORIDE 99 mmol/L (98-107); CREATININE RESULT 0.53 mg/dL (0.52-1.25); GLUCOSE 142 mg/dL (75-110); POTASSIUM 3.3 mmol/L (3.6-5.0); SODIUM 138.3 mmol/L (137-145); TOTAL PROTEIN 7.3 g/dL (6.3-8.2)
[2017-07-05 09:17] LABS: APPEARANCE,URINE CLOUDY; BILIRUBIN,URINE NEGATIVE (NEGATIVE); GLUCOSE, URINE NEGATIVE (NEGATIVE); KETONES,URINE NEGATIVE (NEGATIVE); LEUKOCYTE ESTERASE,URINE NEGATIVE (NEGATIVE); NITRITE,URINE NEGATIVE (NEGATIVE); PROTEIN,URINE 30 mg/dL (NEGATIVE); URINE SPECIFIC GRAVITY 1.023
[2017-07-05 11:12] VITALS: BP 137/91
== END 2017-07-05 11:13 | disposition home or self-care (01) ==
LOC: ER 06:55
DX: R19.7 Diarrhea, unspecified (principal); R11.2 Nausea with vomiting, unspecified; R10.13 Epigastric pain; R10.813 Right lower quadrant abdominal tenderness; R19.5 Other fecal abnormalities; I10 Essential (primary) hypertension; E11.9 Type 2 diabetes mellitus without complications; Z91.040 Latex allergy status; Z91.013 Allergy to seafood
CPT/HCPCS: 99284; 36415; 87045; 89055; 87205; 85025; 82272; 80053; 81001; 87493; J3490

== ENCOUNTER 2017-12-05 16:11 | Emergency (ER) | payer OTHER ==
--- NOTE | 2017-12-05 17:17 | ER Document Report ---
ED Medical Screen (RME) - General Chief Complaint: Shortness Of Breath Stated Complaint: SHORTNESS OF BREATH/ CHEST PAIN Time Seen by Provider: 12/05/17 17:16 Notes: Patient has cough and some mild congestion. She states she is having very sharp chest pain. She states it feels like the previous pain she had when she had pulmonary embolisms. She is currently taking Coumadin. She also had an NSTEMI in April of last year. TRAVEL OUTSIDE OF THE [place] IN LAST 30 DAYS: No - Related Data Allergies/Adverse Reactions: latex [Latex] Allergy (Verified 12/05/17 16:16) Sea Food Allergy (Uncoded 12/05/17 16:16) Past Medical History - Social History Chew tobacco use (# tins/day): No Frequency of alcohol use: Heavy Drug Abuse: None Family history: CAD - MOTHER - Past Medical History Cardiac Medical History: Reports: Hx Hypercholesterolemia, Hx Hypertension Denies: Hx Congestive Heart Failure, Hx Heart Attack Pulmonary Medical History: Reports: Hx Bronchitis Denies: Hx Asthma, Hx COPD, Hx Pneumonia, Hx Tuberculosis Neurological Medical History: Reports: Hx Cerebrovascular Accident - 1 YEAR AGO , COMPLETE RECOVERY. Denies: Hx Seizures Endocrine Medical History: Reports: Hx Diabetes Mellitus Type 2 Renal/ Medical History: Denies: Hx End Stage Renal Disease, Hx Kidney Stones, Hx Peritoneal Dialysis GI Medical History: Denies: Hx Cirrhosis, Hx Gastroesophageal Reflux Disease, Hx Ulcer Musculoskeltal Medical History: Denies Hx Arthritis, Denies Hx Multiple Sclerosis Psychiatric Medical History: Reports: Hx Depression Denies: Hx Bipolar Disorder, Hx Schizophrenia Past Surgical History: Reports: Hx Abdominal Surgery - liver biopsy, Hx Dilation and Curettage, Hx Gynecologic Surgery - ECTOPIC PREG., D&C - Immunizations Hx Diphtheria, Pertussis, Tetanus Vaccination: Yes Physical Exam - Vital signs Vitals: Temp Pulse Resp BP Pulse Ox 98.6 F 91 20 134/85 H 95 12/05/17 16:21 12/05/17 16:21 12/05/17 16:21 12/05/17 16:21 12/05/17 16:21 Course - Vital Signs Vital signs: Temp Pulse Resp BP Pulse Ox 98.6 F 91 20 134/85 H 95 12/05/17 16:21 12/05/17 16:21 12/05/17 16:21 12/05/17 16:21 12/05/17 16:21 Doctor's Discharge - Discharge Referrals: DORENE SMITH PA [Primary Care Provider] - Follow up as needed
[2017-12-05 17:49] LABS: ABSOLUTE EOSINOPHILS # (AUTO) 0.1 10^3/uL (0.0-0.6); ABSOLUTE LYMPHOCYTES (AUTO) 3.1 10^3/uL (0.5-4.7); ABSOLUTE MONOCYTES (AUTO) 0.6 10^3/uL (0.1-1.4); ABSOLUTE NEUT (AUTO) 6.7 10^3/uL (1.7-8.2); BASOPHILS % (AUTO) 0.3 % (0-2); EOSINOPHILS % (AUTO) 1.2 % (0-6); HEMATOCRIT 43.5 % (36.0-47.0); HEMOGLOBIN 14.8 g/dL (12.0-15.5); LYMPHOCYTES % (AUTO) 29.2 % (13-45); MEAN CORPUSCULAR HEMOGLOBIN 31.2 pg (27.0-33.4); MEAN CORPUSCULAR VOLUME 92 fl (80-97); PLATELET COUNT 408 10^3/uL (150-450); RED BLOOD COUNT 4.74 10^6/uL (3.72-5.28); RED CELL DISTRIBUTION WIDTH 14.3 % (11.5-14.0); SEGMENTED NEUTROPHILS % (AUTO) 63.3 % (42-78); TOTAL CELLS COUNTED % (AUTO) 100 %; WHITE BLOOD COUNT 10.5 10^3/uL (4.0-10.5)
--- NOTE | 2017-12-05 17:52 | RADIOLOGY REPORT (SQ) ---
EXAM DESCRIPTION: CHEST PA/LAT COMPLETED DATE/TIME: 12/05/2017 5:43 pm REASON FOR STUDY: cough COMPARISON: 05/12/2017. EXAM PARAMETERS: NUMBER OF VIEWS: two views TECHNIQUE: Digital Frontal and Lateral radiographic views of the chest acquired. RADIATION DOSE: NA LIMITATIONS: none FINDINGS: LUNGS AND PLEURA: No opacities, masses or pneumothorax. No pleural effusion. MEDIASTINUM AND HILAR STRUCTURES: No masses or contour abnormalities. HEART AND VASCULAR STRUCTURES: Heart normal size. No evidence for failure. BONES: No acute findings. HARDWARE: None in the chest. OTHER: No other significant finding. IMPRESSION: NO SIGNIFICANT RADIOGRAPHIC FINDING IN THE CHEST. TECHNICAL DOCUMENTATION: JOB ID: [id number] [employer]- All Rights Reserved Reading location - IP/workstation name: [email or web address]
[2017-12-05 18:08] LABS: ALANINE AMINOTRANSFERASE 34 U/L (9-52); ALBUMIN 4.3 g/dL (3.5-5.0); ALKALINE PHOSPHATASE 75 U/L (38-126); ANION GAP 11 (5-19); ASPARTATE AMINO TRANSFERASE 18 U/L (14-36); BILIRUBIN,DIRECT 0.2 mg/dL (0.0-0.4); BILIRUBIN,TOTAL 0.2 mg/dL (0.2-1.3); BLOOD UREA NITROGEN 16 mg/dL (7-20); CALCIUM 9.8 mg/dL (8.4-10.2); CARBON DIOXIDE 26 mmol/L (22-30); CHLORIDE 104 mmol/L (98-107); GLUCOSE 112 mg/dL (75-110); POTASSIUM 4.2 mmol/L (3.6-5.0); SODIUM 140.6 mmol/L (137-145); TOTAL PROTEIN 7.6 g/dL (6.3-8.2)
[2017-12-05 18:28] LABS: INTERNATIONAL RATION (INR) 2.11; PROTHROMBIN TIME 24.8 SEC (11.4-15.4)
[2017-12-05 18:29] LABS: PARTIAL THROMBOPLASTIN TIME 39.1 SEC (23.5-35.8)
[2017-12-05] MEDS ORDERED: IPRATROPIUM/ALBUTEROL 0.5-2.5 MG/3 ML AMPUL NEB ONE (18:35)
[2017-12-05] MEDS ORDERED: MAGNESIUM SULFATE/D5W 1 GM/100 ML RTUPB IV ONE (18:36)
--- NOTE | 2017-12-05 18:42 | EKG REPORT ---
SEVERITY:- NORMAL ECG - SINUS RHYTHM : Confirmed by: Rafa Avila MD 05-Dec-2017 18:42:17
[2017-12-05] MEDS ORDERED: PREDNISONE 20 MG TABLET PO ONE (19:30)
--- NOTE | 2017-12-05 20:27 | ER Document Report ---
ED General - General Chief Complaint: Shortness Of Breath Stated Complaint: SHORTNESS OF BREATH/ CHEST PAIN Time Seen by Provider: 12/05/17 17:16 TRAVEL OUTSIDE OF THE [place] IN LAST 30 DAYS: No - HPI Patient complains to provider of: Shortness of breath Notes: Patient coming in for evaluation shortness of breath. States ongoing for the last few days patient also has had a nonproductive cough. Patient is a smoker patient has a history of bilateral PEs with current Coumadin therapy. Patient states unclear of the etiology of the PEs. Patient otherwise denies specific chest pain states a little bit of tightness. Patient resting comfortably upon my evaluation. Denies fevers chills nausea vomiting diarrhea abdominal pain. - Related Data Allergies/Adverse Reactions: latex [Latex] Allergy (Verified 12/05/17 18:27) Sea Food Allergy (Uncoded 12/05/17 18:27) Past Medical History - Social History Smoking Status: Current Every Day Smoker Chew tobacco use (# tins/day): No Frequency of alcohol use: Heavy Drug Abuse: None Family History: Reviewed & Not Pertinent, CAD - mother with [place] at 52, from it, Hyperlipidemia, Hypertension Patient has suicidal ideation: No Patient has homicidal ideation: No - Past Medical History Cardiac Medical History: Reports: Hx Hypercholesterolemia, Hx Hypertension Denies: Hx Congestive Heart Failure, Hx Heart Attack Pulmonary Medical History: Reports: Hx Bronchitis Denies: Hx Asthma, Hx COPD, Hx Pneumonia, Hx Tuberculosis Neurological Medical History: Reports: Hx Cerebrovascular Accident - 1 YEAR AGO , COMPLETE RECOVERY. Denies: Hx Seizures Endocrine Medical History: Reports: Hx Diabetes Mellitus Type 2 Renal/ Medical History: Denies: Hx End Stage Renal Disease, Hx Kidney Stones, Hx Peritoneal Dialysis GI Medical History: Denies: Hx Cirrhosis, Hx Gastroesophageal Reflux Disease, Hx Ulcer Musculoskeltal Medical History: Denies Hx Arthritis, Denies Hx Multiple Sclerosis Psychiatric Medical History: Reports: Hx Depression Denies: Hx Bipolar Disorder, Hx Schizophrenia Past Surgical History: Reports: Hx Abdominal Surgery - liver biopsy, Hx Dilation and Curettage, Hx Gynecologic Surgery - ECTOPIC PREG., D&C - Immunizations Hx Diphtheria, Pertussis, Tetanus Vaccination: Yes Review of Systems - Review of Systems Constitutional: No symptoms reported EENT: No symptoms reported Cardiovascular: No symptoms reported Respiratory: Short of breath Gastrointestinal: No symptoms reported Genitourinary: No symptoms reported Female Genitourinary: No symptoms reported Musculoskeletal: No symptoms reported Skin: No symptoms reported Hematologic/Lymphatic: No symptoms reported Neurological/Psychological: No symptoms reported -: Yes All other systems reviewed and negative Physical Exam - Vital signs Vitals: Temp Pulse Resp BP Pulse Ox 98.6 F 91 20 134/85 H 95 12/05/17 16:21 12/05/17 16:21 12/05/17 16:21 12/05/17 16:21 12/05/17 16:21 Interpretation: Normal - General General appearance: Appears well, Alert - HEENT Head: Normocephalic, Atraumatic Eyes: Normal Pupils: PERRL - Respiratory Respiratory status: No respiratory distress Chest status: Nontender Breath sounds: Wheezing Chest palpation: Normal - Cardiovascular Rhythm: Regular Heart sounds: Normal auscultation Murmur: No - Abdominal Inspection: Normal Distension: No distension Bowel sounds: Normal Tenderness: Nontender Organomegaly: No organomegaly - Back Back: Normal, Nontender - Extremities General upper extremity: Normal inspection, Nontender, Normal color, Normal ROM , Normal temperature General lower extremity: Normal inspection, Nontender, Normal color, Normal ROM , Normal temperature, Normal weight bearing. No: Martin's sign - Neurological Neuro grossly intact: Yes Cognition: Normal Orientation: AAOx4 Yasmine Coma Scale Eye Opening: Spontaneous Yasmine Coma Scale Verbal: Oriented Yasmine Coma Scale Motor: Obeys Commands [place] Coma Scale Total: 15 Speech: Normal Motor strength normal: LUE, RUE, LLE, RLE Sensory: Normal - Psychological Associated symptoms: Normal affect, Normal mood - Skin Skin Temperature: Warm Skin Moisture: Dry Skin Color: Normal Course - Re-evaluation Re-evalutation: 12/05/17 22:49 Patient coming in for shortness of breath and wheezing on examination improved after breathing treatment. Patient's Coumadin level is therapeutic no tachycardia and a hypoxic do not think patient will require CT at this time. We will continue to monitor patient more likely a bronchitis. Will treat with prednisone. patient agrees with discharge home. - Vital Signs Vital signs: Temp Pulse Resp BP Pulse Ox 98.6 F 80 18 156/99 H 98 12/05/17 16:21 12/05/17 18:25 12/05/17 18:25 12/05/17 18:25 12/05/17 18:25 - Laboratory Result Diagrams: 12/05/17 17:33 12/05/17 17:33 Laboratory results interpreted by me: 12/05/17 12/05/17 12/05/17 17:33 17:33 17:33 RDW 14.3 H PT 24.8 H APTT 39.1 H Glucose 112 H Discharge - Discharge Clinical Impression: Tobacco abuse, Bronchitis Instructions: Bronchitis With Bronchospasm (Wheezing) ([facility]) Additional Instructions: Your evaluation is More likely due to a virus or weather changes. Please stop smoking. Continue home medications as prescribed. We recommend using inhaler or nebulized albuterol at least every 4 hours for the next 5 days. Please use the Atrovent as prescribed take prednisone as prescribed return to ER symptoms worsen. Prescriptions: Ipratropium [place] [Atrovent 0.02% Neb 0.5 mg/2.5 ml Ampul] 0.5 mg NEB BID #30 vial.neb Prednisone [Deltasone 20 mg Tablet] 3 tab PO DAILY 5 Days tablet Forms: Smoking Cessation Education, Return to Work Referrals: DORENE SMITH PA [Primary Care Provider] - Follow up in 3-5 days
[2017-12-05 20:56] VITALS: BP 126/89
== END 2017-12-05 20:56 | disposition home or self-care (01) ==
LOC: ER 16:11
DX: J40 Bronchitis, not specified as acute or chronic (principal); R06.02 Shortness of breath; R07.9 Chest pain, unspecified; R05 Cough; Z86.711 Personal history of pulmonary embolism; Z79.01 Long term (current) use of anticoagulants; F17.200 Nicotine dependence, unspecified, uncomplicated
CPT/HCPCS: 93005; 99285; 36415; 85025; 85610; 85730; 80053; 84484; 71046; 93010; J3475; J7512; J7620

== ENCOUNTER 2018-04-16 12:29 | Emergency (ER) | payer OTHER ==
--- NOTE | 2018-04-16 13:34 | ER Document Report ---
ED Medical Screen (RME) - General Chief Complaint: Groin Pain Stated Complaint: PAIN IN LEFT GROIN,BACK AND LEG Time Seen by Provider: 04/16/18 13:32 Notes: Patient has had pain in her left hip, buttock, and around to the left groin for the past couple of weeks. It has gotten worse in the last couple of days. She recalls no unusual activity or stretching or straining or falling or injuring the area. She has no arthritic conditions. She did have a pulmonary embolism last year and is currently on warfarin. Her INR was checked last Sunday and it was 2.0. Patient had a cardiac cath in April 2018 and it was normal. TRAVEL OUTSIDE OF THE [place] IN LAST 30 DAYS: No - Related Data Allergies/Adverse Reactions: latex [Latex] Allergy (Verified 04/16/18 13:12) adhesive Adverse Reaction (Verified 04/16/18 13:12) blistering Sea Food Allergy (Uncoded 04/16/18 13:12) Hives Past Medical History - Social History Chew tobacco use (# tins/day): No Frequency of alcohol use: Social Drug Abuse: None Family history: CAD - MOTHER - Past Medical History Cardiac Medical History: Reports: Hx Heart Attack - NSTEMI (04/2017), Hx Hypercholesterolemia, Hx Hypertension Denies: Hx Congestive Heart Failure Pulmonary Medical History: Reports: Hx Bronchitis Denies: Hx Asthma, Hx COPD, Hx Pneumonia, Hx Tuberculosis Neurological Medical History: Reports: Hx Cerebrovascular Accident - 1 YEAR AGO , COMPLETE RECOVERY. Denies: Hx Seizures Endocrine Medical History: Reports: Hx Diabetes Mellitus Type 2 Renal/ Medical History: Denies: Hx End Stage Renal Disease, Hx Kidney Stones, Hx Peritoneal Dialysis GI Medical History: Denies: Hx Cirrhosis, Hx Gastroesophageal Reflux Disease, Hx Ulcer Musculoskeltal Medical History: Denies Hx Arthritis, Denies Hx Multiple Sclerosis Psychiatric Medical History: Reports: Hx Depression Denies: Hx Bipolar Disorder, Hx Schizophrenia Past Surgical History: Reports: Hx Abdominal Surgery - liver biopsy, Hx Cardiac Catheterization, Hx Dilation and Curettage, Hx Gynecologic Surgery - ECTOPIC PREG., D&C - Immunizations Hx Diphtheria, Pertussis, Tetanus Vaccination: Yes Physical Exam - Vital signs Vitals: Temp Pulse Resp BP Pulse Ox 98.8 F 103 H 24 H 148/92 H 97 04/16/18 12:34 04/16/18 12:34 04/16/18 12:34 04/16/18 12:34 04/16/18 12:34 Course - Vital Signs Vital signs: Temp Pulse Resp BP Pulse Ox 98.8 F 103 H 24 H 148/92 H 97 04/16/18 12:34 04/16/18 12:34 04/16/18 12:34 04/16/18 12:34 04/16/18 12:34 Doctor's Discharge - Discharge Referrals: DORENE SMITH PA [Primary Care Provider] - Follow up as needed
--- NOTE | 2018-04-16 14:00 | RADIOLOGY REPORT (SQ) ---
EXAM DESCRIPTION: HIP LEFT AP/LATERAL COMPLETED DATE/TIME: 04/16/2018 1:50 pm REASON FOR STUDY: Pain in left hip, buttock, groin. COMPARISON: None. NUMBER OF VIEWS: Two views. TECHNIQUE: AP pelvis and additional frog-leg view of the left hip. LIMITATIONS: None. FINDINGS: There is joint space narrowing in both hips, worse on the left. Small osteophytes. No ev idence of AVN. SI joints are normal. IMPRESSION: Osteoarthritis. TECHNICAL DOCUMENTATION: JOB ID: [id number] [employer]- All Rights Reserved Reading location - IP/workstation name: [email or web address]
[2018-04-16 14:30] LABS: ABSOLUTE EOSINOPHILS # (AUTO) 0.1 10^3/uL (0.0-0.6); ABSOLUTE LYMPHOCYTES (AUTO) 2.2 10^3/uL (0.5-4.7); ABSOLUTE MONOCYTES (AUTO) 0.5 10^3/uL (0.1-1.4); ABSOLUTE NEUT (AUTO) 6.5 10^3/uL (1.7-8.2); BASOPHILS % (AUTO) 0.3 % (0-2); EOSINOPHILS % (AUTO) 0.9 % (0-6); HEMATOCRIT 43.9 % (36.0-47.0); HEMOGLOBIN 14.9 g/dL (12.0-15.5); LYMPHOCYTES % (AUTO) 23.5 % (13-45); MEAN CORPUSCULAR HEMOGLOBIN 30.8 pg (27.0-33.4); MEAN CORPUSCULAR HGB CONC 33.9 g/dL (32.0-36.0); MEAN CORPUSCULAR VOLUME 91 fl (80-97); MONOCYTES % (AUTO) 5.3 % (3-13); PLATELET COUNT 392 10^3/uL (150-450); RED BLOOD COUNT 4.84 10^6/uL (3.72-5.28); RED CELL DISTRIBUTION WIDTH 15.6 % (11.5-14.0); TOTAL CELLS COUNTED % (AUTO) 100 %; WHITE BLOOD COUNT 9.3 10^3/uL (4.0-10.5)
[2018-04-16 14:31] LABS: INTERNATIONAL RATION (INR) 1.49; PROTHROMBIN TIME 18.7 SEC (11.4-15.4)
[2018-04-16 14:42] LABS: ALANINE AMINOTRANSFERASE 26 U/L (9-52); ALBUMIN 4.1 g/dL (3.5-5.0); ALKALINE PHOSPHATASE 83 U/L (38-126); ANION GAP 12 (5-19); ASPARTATE AMINO TRANSFERASE 20 U/L (14-36); BILIRUBIN,DIRECT 0.3 mg/dL (0.0-0.4); BILIRUBIN,TOTAL 0.3 mg/dL (0.2-1.3); BLOOD UREA NITROGEN 13 mg/dL (7-20); C-REACTIVE PROTEIN 14.6 mg/L (<10.0); CALCIUM 9.5 mg/dL (8.4-10.2); CARBON DIOXIDE 25 mmol/L (22-30); CHLORIDE 106 mmol/L (98-107); GLUCOSE 112 mg/dL (75-110); POTASSIUM 4.5 mmol/L (3.6-5.0); SODIUM 142.5 mmol/L (137-145); TOTAL PROTEIN 7.7 g/dL (6.3-8.2)
[2018-04-16 15:07] LABS: ERYTHROCYTE SEDIMENTATION RATE 16 mm/hr (0-20)
--- NOTE | 2018-04-16 15:47 | ER Document Report ---
ED General - General Chief Complaint: Groin Pain Stated Complaint: PAIN IN LEFT GROIN,BACK AND LEG Time Seen by Provider: 04/16/18 13:32 Mode of Arrival: Ambulatory Information source: Patient Notes: This is a 42-year-old female with a history of pulmonary embolus (currently on Coumadin), hypertension, dyslipidemia who presents to the emergency room with 2 weeks of hip pain. Patient denies any provoking injury. Patient denies any excessive walking, driving, positional changes. Patient denies any fevers, chills or recent illnesses. Review of systems: Patient denies any urinary retention, urinary incontinence, fecal incontinence, saddle anesthesia. TRAVEL OUTSIDE OF THE [place] IN LAST 30 DAYS: No - HPI Onset: Other - Last 2 weeks Onset/Duration: Gradual Quality of pain: Dull Severity: Moderate Pain Level: 2 Associated symptoms: denies: Chest pain, Fever, Nausea, Vomiting, Shortness of breath Exacerbated by: Movement Relieved by: Denies Similar symptoms previously: No Recently seen / treated by doctor: Yes - Related Data Allergies/Adverse Reactions: latex [Latex] Allergy (Verified 04/16/18 13:12) adhesive Adverse Reaction (Verified 04/16/18 13:12) blistering Sea Food Allergy (Uncoded 04/16/18 13:12) Hives Past Medical History - General Information source: Patient - Social History Smoking Status: Current Every Day Smoker Cigarette use (# per day): Yes - Half pack per day Chew tobacco use (# tins/day): No Smoking Education Provided: Yes - 2 minutes (reviewed the risks of worsening emboli with cigarettes) Frequency of alcohol use: Social Drug Abuse: None Lives with: Family Family History: Reviewed & Not Pertinent, CAD - mother with [place] at 52, from it, Hyperlipidemia, Hypertension Patient has suicidal ideation: No Patient has homicidal ideation: No - Past Medical History Cardiac Medical History: Reports: Hx Heart Attack - NSTEMI (04/2017), Hx Hypercholesterolemia, Hx Hypertension Denies: Hx Congestive Heart Failure Pulmonary Medical History: Reports: Hx Bronchitis Denies: Hx Asthma, Hx COPD, Hx Pneumonia, Hx Tuberculosis Neurological Medical History: Reports: Hx Cerebrovascular Accident - 1 YEAR AGO , COMPLETE RECOVERY. Denies: Hx Seizures Endocrine Medical History: Reports: Hx Diabetes Mellitus Type 2 Renal/ Medical History: Denies: Hx End Stage Renal Disease, Hx Kidney Stones, Hx Peritoneal Dialysis GI Medical History: Denies: Hx Cirrhosis, Hx Gastroesophageal Reflux Disease, Hx Ulcer Musculoskeletal Medical History: Denies Hx Arthritis, Denies Hx Multiple Sclerosis Psychiatric Medical History: Reports: Hx Depression Denies: Hx Bipolar Disorder, Hx Schizophrenia Past Surgical History: Reports: Hx Abdominal Surgery - liver biopsy, Hx Cardiac Catheterization, Hx Dilation and Curettage, Hx Gynecologic Surgery - ECTOPIC PREG., D&C - Immunizations Hx Diphtheria, Pertussis, Tetanus Vaccination: Yes Review of Systems - Review of Systems Constitutional: denies: Chills, Fever EENT: No symptoms reported Cardiovascular: No symptoms reported Respiratory: No symptoms reported Gastrointestinal: No symptoms reported Genitourinary: No symptoms reported Female Genitourinary: No symptoms reported Musculoskeletal: See HPI Skin: No symptoms reported Hematologic/Lymphatic: No symptoms reported Neurological/Psychological: No symptoms reported Physical Exam - Vital signs Vitals: Temp Pulse Resp BP Pulse Ox 98.8 F 103 H 24 H 148/92 H 97 04/16/18 12:34 04/16/18 12:34 04/16/18 12:34 04/16/18 12:34 04/16/18 12:34 Notes: Physical exam: GENERAL: 42-year-old female, alert and oriented 3, no acute distress HEAD: Atraumatic, normocephalic. EYES: Pupils equal round and reactive to light, extraocular movements intact, sclera anicteric, conjunctiva are normal. ENT: TMs normal, nares patent, oropharynx clear without exudates. Moist mucous membranes. NECK: Normal range of motion, supple without obvious mass or JVD. LUNGS: Breath sounds clear to auscultation bilaterally and equal. No wheezes rales or rhonchi. HEART: Regular rate and rhythm without murmurs, rubs or gallops. ABDOMEN: Soft, normoactive bowel sounds. No tenderness to palpation. No guarding, no rebound. No masses appreciated. Back: Patient has no tenderness to the cervical spine, thoracic spine or lumbar spine. She has mild paraspinal tenderness to the lower lumbar area. EXTREMITIES: Normal range of motion, no pitting or edema. No clubbing or cyanosis. Patient does have good distal pulses to the lower extremities. She does have cap refill. Color to the foot is normal. She has got good range of motion of the left hip. There is no warmth or swelling over the skin to the hip. NEUROLOGICAL: Cranial nerves II through XII grossly intact. Normal speech, moving all extremities. Motor to the lower extremities are intact. Sensation to the saddle area is good. Sensation to the rest of the lower extremities good. PSYCH: Normal mood, normal affect. SKIN: Warm, Dry, normal turgor, no rashes or lesions noted. Course - Re-evaluation Re-evalutation: 04/16/18 19:17 Note: I discussed the results of the CAT scan with her. She is sitting crosslegged in the stretcher (i.e. her range of motion is very good). CT showed no evidence of bleeding. She has had no fever or anything suggestive of infection. It is possible she has some radiculopathy because she does have some low back pain. She does not have any symptoms of acute cord compression ( saddle anesthesia, urinary retention, bladder incontinence, stool incontinence, muscle weakness). I have advised her to follow-up with her primary care doctor and I have given her a copy of the CT results as well as the labs. I did inform her that her INR is a bit on the low side and she may want it adjusted. I have advised her to call her primary care doctor. - Vital Signs Vital signs: Temp Pulse Resp BP Pulse Ox 98.4 F 79 16 119/87 H 95 04/16/18 16:25 04/16/18 16:25 04/16/18 16:25 04/16/18 16:25 04/16/18 16:25 - Laboratory Result Diagrams: 04/16/18 14:12 04/16/18 14:12 Laboratory results interpreted by me: 04/16/18 04/16/18 04/16/18 14:12 14:12 14:12 RDW 15.6 H PT 18.7 H Glucose 112 H C-Reactive Protein 14.6 H - Diagnostic Test Radiology reviewed: Image reviewed, Reports reviewed - CT of the hip shows no evidence of bleeding Discharge - Discharge Clinical Impression: Left hip pain Condition: Stable Disposition: HOME, SELF-CARE Additional Instructions: As we discussed, the x-rays did show some arthritis in the left hip joint. CT was done primarily because you are on a blood thinner and we want to make sure there was no evidence of bleeding within the joint (which could cause a lot of pain). CT showed no evidence of any bleeding which is good. Your Coumadin level (the INR) was 1.49. I would discuss this with your primary care doctor about adjusting the Coumadin. As far as her other labs, they look good. Take the oxycodone for pain. Take Tylenol for pain. Because you are on the Coumadin, I would like you to avoid ibuprofen, Motrin, Naprosyn. Follow-up with your primary care doctor this week. Bring a copy of the CT report as well as the labs with you when you go. Return to the emergency room for worsening pain, bowel dysfunction, numbness to the legs, any concerns or getting worse. The pain medicine you're taking prescribed as a narcotic. There are several important things you should know about this medicine: 1. Taking narcotics for too long can lead to physical and mental dependence. Take this medicine only if really needed and in the lowest quantity to achieve pain relief. 2. Do not drink alcohol while on this medicine. Alcohol interacts with narcotics and the combination can be dangerous. 3. Do not drive or operate machinery while on this medicine. 4. Narcotics do cause constipation, so drink plenty of fluids and daily stool softeners. Prescriptions: Oxycodone HCl 5 mg PO Q6HP PRN #25 tablet PRN Reason: Forms: Return to Work Referrals: DORENE SMITH PA [Primary Care Provider] - Follow up as needed
--- NOTE | 2018-04-16 16:07 | RADIOLOGY REPORT (SQ) ---
EXAM DESCRIPTION: CT LT LOWER EXTREMITY WITHOUT COMPLETED DATE/TIME: 04/16/2018 3:59 pm REASON FOR STUDY: left hip pain-on coumadin COMPARISON: None. TECHNIQUE: CT scan of the left hip performed without intravenous or oral contrast. Images reviewed with soft tissue and bone windows. Reconstructed coronal and sagittal MPR images reviewed. All imag es stored on PACS. All CT scanners at this facility use dose modulation, iterative reconstruction, and/or weight based d osing when appropriate to reduce radiation dose to as low as reasonably achievable (ALARA). [facility]: Dose Right [facility]: CareDose [facility]: Dose Right [facility]: Teradose 4D [facility]: [place]ira RADIATION DOSE: CT Rad equipment meets quality standard of care and radiation dose reduction techniq ues were employed. CTDIvol: 4.1 mGy. DLP: 150 mGy-cm. mGy. LIMITATIONS: Body habitus. FINDINGS: No fracture is identified. No hematoma. Small bone island in the anterior column of the acetabulum. Moderate osteoarthritis. IMPRESSION: No acute findings. TECHNICAL DOCUMENTATION: JOB ID: [id number] Quality ID # [id number]: Final reports with documentation of one or more dose reduction techniques (e.g., Au tomated exposure control, adjustment of the mA and/or kV according to patient size, use of iterative reconstruction technique) 2010 [employer]- All Rights Reserved Reading location - IP/workstation name: [email or web address]
[2018-04-16 16:38] VITALS: BP 119/87
== END 2018-04-16 18:18 | disposition home or self-care (01) ==
LOC: ER 12:29
DX: M25.552 Pain in left hip (principal); R10.30 Lower abdominal pain, unspecified; F17.210 Nicotine dependence, cigarettes, uncomplicated; I10 Essential (primary) hypertension; E78.00 Pure hypercholesterolemia, unspecified; E11.9 Type 2 diabetes mellitus without complications; Z86.711 Personal history of pulmonary embolism; Z79.01 Long term (current) use of anticoagulants; Z91.040 Latex allergy status; I25.2 Old myocardial infarction; Z86.73 Personal history of transient ischemic attack (TIA), and cerebral infarction without residual deficits
CPT/HCPCS: 36415; 80053; 85025; 85610; 85652; 86140; 99284

== ENCOUNTER 2018-08-19 06:34 | Emergency (ER) | payer OTHER ==
[2018-08-19] MEDS ORDERED: ONDANSETRON HCL INJ/PF 4 MG/2 ML SDV IV ONE (07:08)
[2018-08-19] MEDS ORDERED: PANTOPRAZOLE SODIUM 40 MG VIAL IV ONE (07:08)
[2018-08-19] MEDS: NORMAL SALINE 1000 ML 1,000 ML IV PRN ×2 (07:37→08:59)
[2018-08-19 07:39] LABS: ABSOLUTE BASOPHILS # (AUTO) 0.1 10^3/uL (0.0-0.2); ABSOLUTE EOSINOPHILS # (AUTO) 0.1 10^3/uL (0.0-0.6); ABSOLUTE LYMPHOCYTES (AUTO) 1.7 10^3/uL (0.5-4.7); ABSOLUTE MONOCYTES (AUTO) 0.4 10^3/uL (0.1-1.4); ABSOLUTE NEUT (AUTO) 5.4 10^3/uL (1.7-8.2); BASOPHILS % (AUTO) 0.9 % (0-2); EOSINOPHILS % (AUTO) 1.1 % (0-6); HEMATOCRIT 37.9 % (36.0-47.0); HEMOGLOBIN 13.2 g/dL (12.0-15.5); LYMPHOCYTES % (AUTO) 22.1 % (13-45); MEAN CORPUSCULAR HGB CONC 34.7 g/dL (32.0-36.0); MEAN CORPUSCULAR VOLUME 89 fl (80-97); MONOCYTES % (AUTO) 5.4 % (3-13); PLATELET COUNT 357 10^3/uL (150-450); RED BLOOD COUNT 4.24 10^6/uL (3.72-5.28); RED CELL DISTRIBUTION WIDTH 15.6 % (11.5-14.0); SEGMENTED NEUTROPHILS % (AUTO) 70.5 % (42-78); TOTAL CELLS COUNTED % (AUTO) 100 %; WHITE BLOOD COUNT 7.7 10^3/uL (4.0-10.5)
[2018-08-19 07:46] LABS: PROTHROMBIN TIME 37.6 SEC (11.4-15.4)
--- NOTE | 2018-08-19 07:47 | ER Document Report ---
ED General - General Chief Complaint: Nausea/Vomiting Stated Complaint: DIARRHEA,VOMITING BLOOD Time Seen by Provider: 08/19/18 06:55 TRAVEL OUTSIDE OF THE [place] IN LAST 30 DAYS: No - HPI Notes: Patient is a 42-year-old female that presents to the emergency department for chief complaint of hematemesis. Patient reports one episode of bright red emesis this morning. She has intermittent episodes of nausea and vomiting over the last few months but has never had bleeding before. She does drink 8-10 beers daily for the last few years. She denies history of esophageal varices or upper GI bleeding in the past. She has had a colonoscopy years ago that was normal but has never had an EGD done. She reports nausea currently and a crampy epigastric abdominal pain. Her pain is constant and nonradiating. The pain was worse with emesis. She denies relieving factors to the pain. She is currently on Coumadin for history of pulmonary embolism. Past Medical History: PE, hypertension, diabetes, GERD Past Surgical History: Reviewed in chart Social History: Daily alcohol. Denies tobacco and drug use Family History: Reviewed and noncontributory for presenting illness Allergies: Reviewed, see documented allergy list. REVIEW OF SYSTEMS: CONSTITUTIONAL : No fever No chills No diaphoresis No recent illness EENT: No vision changes No congestion No sore throat CARDIOVASCULAR: No chest pain No palpitations RESPIRATORY: No shortness of breath No cough No difficulty breathing GASTROINTESTINAL: abdominal pain nausea vomiting diarrhea GENITOURINARY: No dysuria No hematuria No difficulty urinating MUSCULOSKELETAL: No back pain No leg pain No arm pain SKIN: No rashes No lesions LYMPHATIC: No swollen, enlarged glands. NEUROLOGICAL: No lightheadedness No headache No weakness No paresthesias PSYCHIATRIC: No anxiety No depression PHYSICAL EXAMINATION: Vital signs reviewed, nursing noted reviewed. GENERAL: Well-appearing, well-nourished and in no acute distress. HEAD: Atraumatic, normocephalic. EYES: Eyes appear normal, extraocular movements intact, sclera anicteric, conjunctiva are normal. ENT: nares patent, oropharynx clear without exudates. Moist mucous membranes. NECK: Normal range of motion, supple without lymphadenopathy LUNGS: Breath sounds clear to auscultation bilaterally and equal. No wheezes rales or rhonchi. HEART: Regular rate and rhythm without murmurs ABDOMEN: Soft, mild epigastric tenderness, normoactive bowel sounds. No rebound , guarding, or rigidity. No masses appreciated. : Normal external rectal exam. Normal rectal tone. No pain with rectal exam. Light brown stool Hemoccult negative EXTREMITIES: Nontender, good range of motion, no pitting or edema. NEUROLOGICAL: No focal neurological deficits. Moves all extremities spontaneously Motor and sensory grossly intact on exam. PSYCH: Normal mood, normal affect. SKIN: Warm, Dry, normal turgor, no rashes or lesions noted on exposed skin - Related Data Allergies/Adverse Reactions: latex [Latex] Allergy (Verified 04/16/18 13:12) adhesive Adverse Reaction (Verified 04/16/18 13:12) blistering Sea Food Allergy (Uncoded 04/16/18 13:12) Hives Past Medical History - Social History Smoking Status: Current Every Day Smoker Frequency of alcohol use: Heavy Drug Abuse: None Family History: Reviewed & Not Pertinent, CAD - mother with PA at 52, from it, Hyperlipidemia, Hypertension Patient has suicidal ideation: No Patient has homicidal ideation: No - Past Medical History Cardiac Medical History: Reports: Hx Heart Attack - NSTEMI (04/2017), Hx Hypercholesterolemia, Hx Hypertension Denies: Hx Congestive Heart Failure Pulmonary Medical History: Reports: Hx Bronchitis Denies: Hx Asthma, Hx COPD, Hx Pneumonia, Hx Tuberculosis Neurological Medical History: Reports: Hx Cerebrovascular Accident - 1 YEAR AGO , COMPLETE RECOVERY. Denies: Hx Seizures Endocrine Medical History: Reports: Hx Diabetes Mellitus Type 2 Renal/ Medical History: Denies: Hx End Stage Renal Disease, Hx Kidney Stones, Hx Peritoneal Dialysis GI Medical History: Denies: Hx Cirrhosis, Hx Gastroesophageal Reflux Disease, Hx Ulcer Musculoskeletal Medical History: Denies Hx Arthritis, Denies Hx Multiple Sclerosis Psychiatric Medical History: Reports: Hx Depression Denies: Hx Bipolar Disorder, Hx Schizophrenia Past Surgical History: Reports: Hx Abdominal Surgery - liver biopsy, Hx Cardiac Catheterization, Hx Dilation and Curettage, Hx Gynecologic Surgery - ECTOPIC PREG., D&C - Immunizations Hx Diphtheria, Pertussis, Tetanus Vaccination: Yes Physical Exam - Vital signs Vitals: Temp Pulse Resp BP Pulse Ox 98.1 F 102 H 19 172/92 H 97 08/19/18 06:39 08/19/18 06:39 08/19/18 06:39 08/19/18 06:39 08/19/18 06:39 Course - Re-evaluation Re-evalutation: 08/19/18 07:46 Vitals reviewed. Nursing notes reviewed. Patient is tachycardic and hypertensive at presentation. She had one episode of bright red hematemesis. She is currently anticoagulated on Coumadin. She was started on IV hydration and given Protonix for her acute GI bleeding. 08/19/18 08:12 Patient reevaluated. She is still feeling nauseated but has not had any more emesis. Her INR is 3.6 and patient will be given vitamin K for reversal of her supratherapeutic INR in the setting of acute upper GI bleeding. Patient's hemoglobin is stable at 13. She is Hemoccult negative suggesting this bleeding just began. Patient's heart rate is improving with IV hydration and she is currently at 95. Her blood pressure is still stable at 147/86. The remainder of patient's workup patient will be transferred to [facility] for GI evaluation and likely EGD to evaluate for source of bleeding. Case discussed with Dr. Gonzalez who has accepted transfer. Patient in agreement with this plan of care and stable for transfer. Laboratory 08/19/18 08/19/18 08/19/18 07:04 07:24 07:24 WBC 7.7 RBC 4.24 Hgb 13.2 Hct 37.9 MCV 89 MCH 31.0 MCHC 34.7 RDW 15.6 H Plt Count 357 Seg Neutrophils % 70.5 Lymphocytes % 22.1 Monocytes % 5.4 Eosinophils % 1.1 Basophils % 0.9 Absolute Neutrophils 5.4 Absolute Lymphocytes 1.7 Absolute Monocytes 0.4 Absolute Eosinophils 0.1 Absolute Basophils 0.1 PT INR Sodium 143.2 Potassium 4.0 Chloride 108 H Carbon Dioxide 28 Anion Gap 7 BUN 12 Creatinine 0.58 Est GFR ( Amer) > 60 Est GFR (Non-Af Amer) > 60 Glucose 124 H Calcium 8.4 Total Bilirubin 0.3 Direct Bilirubin 0.3 Neonat Total Bilirubin Not Reportable Neonat Direct Bilirubin Not Reportable Neonat Indirect Bili Not Reportable AST 22 ALT 19 Alkaline Phosphatase 83 Troponin I Total Protein 7.1 Albumin 3.8 Stool Occult Blood NEGATIVE Serum Alcohol Blood Type 08/19/18 08/19/18 08/19/18 07:24 07:24 07:24 WBC RBC Hgb Hct MCV MCH MCHC RDW Plt Count Seg Neutrophils % Lymphocytes % Monocytes % Eosinophils % Basophils % Absolute Neutrophils Absolute Lymphocytes Absolute Monocytes Absolute Eosinophils Absolute Basophils PT 37.6 H INR 3.60 Sodium Potassium Chloride Carbon Dioxide Anion Gap BUN Creatinine Est GFR ( Amer) Est GFR (Non-Af Amer) Glucose Calcium Total Bilirubin Direct Bilirubin Neonat Total Bilirubin Neonat Direct Bilirubin Neonat Indirect Bili AST ALT Alkaline Phosphatase Troponin I 0.020 Total Protein Albumin Stool Occult Blood Serum Alcohol Blood Type A POSITIVE 08/19/18 07:24 WBC RBC Hgb Hct MCV MCH MCHC RDW Plt Count Seg Neutrophils % Lymphocytes % Monocytes % Eosinophils % Basophils % Absolute Neutrophils Absolute Lymphocytes Absolute Monocytes Absolute Eosinophils Absolute Basophils PT INR Sodium Potassium Chloride Carbon Dioxide Anion Gap BUN Creatinine Est GFR ( Amer) Est GFR (Non-Af Amer) Glucose Calcium Total Bilirubin Direct Bilirubin Neonat Total Bilirubin Neonat Direct Bilirubin Neonat Indirect Bili AST ALT Alkaline Phosphatase Troponin I Total Protein Albumin Stool Occult Blood Serum Alcohol < 10 Blood Type 08/19/18 11:54 Patient was evaluated just prior to transportation and had remained hemodynamically stable. She did not have any hematemesis in the ED. - Vital Signs Vital signs: Temp Pulse Resp BP Pulse Ox 98.1 F 102 H 18 139/78 H 97 08/19/18 06:39 08/19/18 06:39 08/19/18 10:30 08/19/18 10:30 08/19/18 10:30 - Laboratory Result Diagrams: 08/19/18 07:24 08/19/18 07:24 Laboratory results interpreted by me: 08/19/18 08/19/18 08/19/18 07:24 07:24 07:24 RDW 15.6 H PT 37.6 H Chloride 108 H Glucose 124 H Critical Care Note - Critical Care Note Total time excluding time spent on procedures (mins): 35 Comments: Upper GI bleeding in the setting of anticoagulation. Supratherapeutic INR. Management of hemodynamics and reversal of anticoagulation. Potential for significant hemodynamic compromise. Frequent re-evaluations. Discharge - Discharge Clinical Impression: Upper GI bleed, Supratherapeutic INR Condition: Stable Disposition: REPLACED BY [facility]
[2018-08-19 08:00] LABS: ALANINE AMINOTRANSFERASE 19 U/L (9-52); ALBUMIN 3.8 g/dL (3.5-5.0); ALKALINE PHOSPHATASE 83 U/L (38-126); ANION GAP 7 (5-19); ASPARTATE AMINO TRANSFERASE 22 U/L (14-36); BILIRUBIN,DIRECT 0.3 mg/dL (0.0-0.4); BILIRUBIN,TOTAL 0.3 mg/dL (0.2-1.3); BLOOD UREA NITROGEN 12 mg/dL (7-20); CALCIUM 8.4 mg/dL (8.4-10.2); CARBON DIOXIDE 28 mmol/L (22-30); CHLORIDE 108 mmol/L (98-107); GLUCOSE 124 mg/dL (75-110); SODIUM 143.2 mmol/L (137-145); TOTAL PROTEIN 7.1 g/dL (6.3-8.2)
[2018-08-19] MEDS ORDERED: PHYTONADIONE 5 MG TABLET PO ONE (08:11)
[2018-08-19 10:32] VITALS: BP 139/78
== END 2018-08-19 10:59 | disposition short-term general hospital (02) ==
LOC: ER 06:34
DX: K92.2 Gastrointestinal hemorrhage, unspecified (principal); K92.0 Hematemesis; R10.13 Epigastric pain; R19.7 Diarrhea, unspecified; R00.0 Tachycardia, unspecified; I10 Essential (primary) hypertension; E11.9 Type 2 diabetes mellitus without complications; I26.99 Other pulmonary embolism without acute cor pulmonale; Z79.01 Long term (current) use of anticoagulants; F17.200 Nicotine dependence, unspecified, uncomplicated; Z91.040 Latex allergy status; Z91.013 Allergy to seafood
CPT/HCPCS: 99291; 96361; 96374; 96375; 86900; 86901; 36415; 86850; 80307; 85025; 85610; 82272; 80053; 84484; J3490; S0164; J2405; J7030